=== PATIENT | female | born 1960 | race Caucasian/White ===

== ENCOUNTER → 2016-04-02 | Outpatient (CLI) | payer MEDICAID ==
[2016-04-02 10:01] LABS: HEMATOCRIT 41.1 % (36.0-47.0); HEMOGLOBIN 13.7 g/dL (12.0-15.5); MEAN CORPUSCULAR HEMOGLOBIN 32.9 pg (27.0-33.4); MEAN CORPUSCULAR HGB CONC 33.3 g/dL (32.0-36.0); MEAN CORPUSCULAR VOLUME 99 fl (80-97); RED BLOOD COUNT 4.15 10^6/uL (3.72-5.28); RED CELL DISTRIBUTION WIDTH 12.2 % (11.5-14.0); WHITE BLOOD COUNT 6.8 10^3/uL (4.0-10.5)
[2016-04-02 10:06] LABS: APPEARANCE,URINE SLIGHTLY-CLOUDY; BILIRUBIN,URINE NEGATIVE (NEGATIVE); GLUCOSE, URINE NEGATIVE (NEGATIVE); KETONES,URINE NEGATIVE (NEGATIVE); LEUKOCYTE ESTERASE,URINE NEGATIVE (NEGATIVE); NITRITE,URINE NEGATIVE (NEGATIVE); PROTEIN,URINE NEGATIVE (NEGATIVE); URINE SPECIFIC GRAVITY 1.017; UROBILINOGEN,URINE NEGATIVE mg/dL (<2.0)
[2016-04-02 10:22] LABS: ALANINE AMINOTRANSFERASE 30 U/L (9-52); ALBUMIN 4.2 g/dL (3.5-5.0); ALKALINE PHOSPHATASE 63 U/L (38-126); ANION GAP 10 (5-19); ASPARTATE AMINO TRANSFERASE 28 U/L (14-36); BILIRUBIN,TOTAL 0.6 mg/dL (0.2-1.3); BLOOD UREA NITROGEN 11 mg/dL (7-20); CALCIUM 9.6 mg/dL (8.4-10.2); CARBON DIOXIDE 29 mmol/L (22-30); CHLORIDE 103 mmol/L (98-107); CHOLESTEROL 196.13 mg/dL (0-200); CREATININE RESULT 0.64 mg/dL (0.52-1.25); Direct HDL 60 mg/dL (>40); GLUCOSE 184 mg/dL (75-110); MAGNESIUM 1.8 mg/dL (1.6-2.3); POTASSIUM 4.6 mmol/L (3.6-5.0); SODIUM 142.2 mmol/L (137-145); TOTAL PROTEIN 7.1 g/dL (6.3-8.2); TRIGLYCERIDES 342 mg/dL (<150); URIC ACID 6.7 mg/dL (2.5-7.5)
[2016-04-02 10:33] LABS: DIRECT LDL 84 mg/dL (<100)
[2016-04-02 10:37] LABS: VLDL CHOLESTEROL 68.4 mg/dL (10-31)
[2016-04-03 11:40] LABS: CREATININE URINE 139.2 mg/dL (Not Estab.); MICROALBUMIN URINE 4.4 ug/mL (Not Estab.)
== END ==
LOC: OD 08:44
PROVIDERS: ATTEND Internal Medicine Cardiovascular Disease
DX: E78.00 Pure hypercholesterolemia, unspecified (principal); E11.42 Type 2 diabetes mellitus with diabetic polyneuropathy; Z79.899 Other long term (current) drug therapy; M10.39 Gout due to renal impairment, multiple sites; Z79.01 Long term (current) use of anticoagulants
CPT/HCPCS: 36415; 80048; 80061; 80076; 81001; 82043; 82570; 83036; 83735; 84443; 84550; 85027; 85730

== ENCOUNTER 2016-05-20 16:12 | Emergency (ER) | payer MEDICAID ==
[2016-05-20] MEDS ORDERED: ASPIRIN 81 MG TABLET, CHEWABLE PO ONE (16:16)
[2016-05-20 17:17] LABS: ABSOLUTE BASOPHILS # (AUTO) 0.1 10^3/uL (0.0-0.2); ABSOLUTE EOSINOPHILS # (AUTO) 0.3 10^3/uL (0.0-0.6); ABSOLUTE LYMPHOCYTES (AUTO) 2.1 10^3/uL (0.5-4.7); ABSOLUTE MONOCYTES (AUTO) 0.6 10^3/uL (0.1-1.4); ABSOLUTE NEUT (AUTO) 5.1 10^3/uL (1.7-8.2); BASOPHILS % (AUTO) 0.8 % (0-2); EOSINOPHILS % (AUTO) 3.2 % (0-6); HEMATOCRIT 42.4 % (36.0-47.0); HEMOGLOBIN 14.4 g/dL (12.0-15.5); HGB HCT DIFFERENCE 0.8; LYMPHOCYTES % (AUTO) 25.9 % (13-45); MEAN CORPUSCULAR HEMOGLOBIN 33.2 pg (27.0-33.4); MEAN CORPUSCULAR VOLUME 98 fl (80-97); MONOCYTES % (AUTO) 7.1 % (3-13); RED BLOOD COUNT 4.35 10^6/uL (3.72-5.28); RED CELL DISTRIBUTION WIDTH 12.9 % (11.5-14.0); WHITE BLOOD COUNT 8.1 10^3/uL (4.0-10.5)
[2016-05-20 17:31] LABS: ALANINE AMINOTRANSFERASE 18 U/L (9-52); ALKALINE PHOSPHATASE 63 U/L (38-126); ANION GAP 10 (5-19); ASPARTATE AMINO TRANSFERASE 20 U/L (14-36); BILIRUBIN,TOTAL 0.4 mg/dL (0.2-1.3); BLOOD UREA NITROGEN 17 mg/dL (7-20); CALCIUM 9.9 mg/dL (8.4-10.2); CARBON DIOXIDE 28 mmol/L (22-30); CHLORIDE 102 mmol/L (98-107); CREATINE KINASE 103 U/L (30-135); CREATININE RESULT 0.78 mg/dL (0.52-1.25); GLUCOSE 144 mg/dL (75-110); SODIUM 140.4 mmol/L (137-145); TOTAL PROTEIN 7.2 g/dL (6.3-8.2)
[2016-05-20 17:43] LABS: CREATINE KINASE MB 0.92 ng/mL (<4.55); TROPONIN I < 0.012 ng/mL
--- NOTE | 2016-05-20 18:25 | ER Document Report ---
ED General - General Chief Complaint: Palpitations Stated Complaint: HEART PALPITATIONS Mode of Arrival: Ambulatory Information source: Patient Notes: 55-year-old female history of A. fib on Cardizem presents with palpitations. Patient denies any chest pain shortness breath difficult to breathing. Patient notes she took her Cardizem prior to arrival. Patient is on 2 different medications for her thyroid as well TRAVEL OUTSIDE OF THE [place] IN LAST 30 DAYS: No - HPI Onset: Just prior to arrival Onset/Duration: Sudden Quality of pain: No pain Severity: Mild Pain Level: Denies Associated symptoms: Other Exacerbated by: Denies Relieved by: Denies Similar symptoms previously: Yes Recently seen / treated by doctor: Yes - Related Data Allergies/Adverse Reactions: HARJEET Inhibitors [Harjeet Inhibitors] Allergy (Unknown, Verified 03/22/13 15:39) ACEINHIBITORS [HARJEET Inhibitors] Allergy (Unknown, Verified 02/17/13 18:28) medroxyprogesterone acetate [From Provera] Allergy (Unknown, Verified 02/17/13 18:28) Hives erythromycin base [Erythromycin Base] Adverse Reaction (Mild, Verified 02/17/13 18:28) Itchy Past Medical History - Social History Smoking Status: Never Smoker Cigarette use (# per day): No Chew tobacco use (# tins/day): No Smoking Education Provided: No Family History: Reviewed & Not Pertinent - Past Medical History Cardiac Medical History: Reports: Hx Hypercholesterolemia, Hx Hypertension Denies: Hx Coronary Artery Disease, Hx Heart Attack Pulmonary Medical History: Reports: Hx Asthma, Hx Bronchitis, Hx Pneumonia Denies: Hx Tuberculosis Neurological Medical History: Denies: Hx Cerebrovascular Accident, Hx Seizures Endocrine Medical History: Reports: Hx Diabetes Mellitus Type 1, Hx Diabetes Mellitus Type 2 Musculoskeltal Medical History: Reports Hx Arthritis - LEGS AND BACK Psychiatric Medical History: Reports: Hx Depression Past Surgical History: Reports: Hx Bowel Surgery - MULTIPLE COLONOSCOPY, Hx Section, Hx Cholecystectomy, Hx Orthopedic Surgery - knee surgery, Hx Tonsillectomy - Immunizations Hx Diphtheria, Pertussis, Tetanus Vaccination: Yes Hx Pneumococcal Vaccination: 02/15/13 Review of Systems - Review of Systems Notes: REVIEW OF SYSTEMS: CONSTITUTIONAL : Denies fever, chills, or sweats. Denies recent illness. EENT: Denies eye, ear, throat, or mouth pain or symptoms. Denies nasal or sinus congestion or discharge. Denies throat, tongue, or mouth swelling or difficulty swallowing. CARDIOVASCULAR: Admits to palpitations RESPIRATORY: Denies cough, cold, or chest congestion. Denies shortness of breath, difficulty breathing, or wheezing. GASTROINTESTINAL: Denies abdominal pain or distention. Denies nausea, vomiting , or diarrhea. Denies blood in vomitus, stools, or per rectum. Denies black, tarry stools. Denies constipation. GENITOURINARY: Denies difficulty urinating, painful urination, burning, frequency, blood in urine, or discharge. FEMALE GENITOURINARY: Denies vaginal bleeding, heavy or abnormal periods, irregular periods. Denies vaginal discharge or odor. MUSCULOSKELETAL: Denies back or neck pain or stiffness. Denies joint pain or swelling. SKIN: Denies rash, lesions or sores. HEMATOLOGIC : Denies easy bruising or bleeding. LYMPHATIC: Denies swollen, enlarged glands. NEUROLOGICAL: Denies confusion or altered mental status. Denies passing out or loss of consciousness. Denies dizziness or lightheadedness. Denies headache. Denies weakness or paralysis or loss of use of either side. Denies problems with gait or speech. Denies sensory loss, numbness, or tingling. Denies seizures. PSYCHIATRIC: Denies anxiety or stress. Denies depression, suicidal ideation, or homicidal ideation. ALL OTHER SYSTEMS REVIEWED AND NEGATIVE. Dictation was performed using [employer] voice recognition software PHYSICAL EXAMINATION: GENERAL: Well-appearing, well-nourished and in no acute distress. HEAD: Atraumatic, normocephalic. EYES: Pupils equal round and reactive to light, extraocular movements intact, conjunctiva are normal. ENT: Nares patent, oropharynx clear without exudates. Moist mucous membranes. NECK: Normal range of motion, supple without lymphadenopathy LUNGS: Breath sounds clear to auscultation bilaterally and equal. No wheezes rales or rhonchi. HEART: Regular rate and rhythm, heart rate 105 ABDOMEN: Soft, nontender, nondistended abdomen. No guarding, no rebound. No masses appreciated. Female : deferred Musculoskeletal: Normal range of motion, no pitting or edema. No cyanosis. NEUROLOGICAL: Cranial nerves grossly intact. Normal speech, normal gait. Normal sensory, motor exams PSYCH: Normal mood, normal affect. SKIN: Warm, Dry, normal turgor, no rashes or lesions noted. Physical Exam - Vital signs Vitals: Pulse Ox 94 05/20/16 16:43 Course - Re-evaluation Re-evalutation: 05/20/16 23:12 Patient notes her heart rate was in the 180s prior to arrival and has since resolved. Given the patient is on Cardizem denies any other concerns I believe she is stable for discharge. Lab work noted no significant abnormality Patient is ready for discharge and wishes to have discharge papers After performing a Medical Screening Examination, I estimate there is LOW risk for RUPTURED ESOPHAGUS, PNEUMOTHORAX, PULMONARY EMBOLISM, ACUTE CORONARY SYNDROME, OR THORACIC AORTIC DISSECTION, thus I consider the discharge disposition reasonable. The patient and I have discussed the diagnosis and risks , and we agree with discharging home with close follow-up. We also discussed returning to the Emergency Department immediately if new or worsening symptoms occur. We have discussed the symptoms which are most concerning (e.g., bloody sputum, worsening pain or shortness of breath) that necessitate immediate return. - Vital Signs Vital signs: Temp Pulse Resp BP Pulse Ox 97.3 F 88 14 122/84 97 05/20/16 18:23 05/20/16 18:23 05/20/16 18:23 05/20/16 18:23 05/20/16 18:23 - Laboratory Result Diagrams: 05/20/16 16:58 05/20/16 16:58 Laboratory results interpreted by me: 05/20/16 05/20/16 16:58 16:58 MCV 98 H Glucose 144 H - Diagnostic Test Radiology reviewed: Image reviewed, Reports reviewed - EKG Interpretation by [place] EKG shows normal: Sinus rhythm, [place], Intervals, QRS Complexes Rhythm: A.Fib Discharge - Discharge Clinical Impression: Atrial fibrillation with RVR, Palpitations Condition: Stable Disposition: HOME, SELF-CARE Instructions: Palpitations (Irregular or Rapid Heartrate) ([facility]) Additional Instructions: Follow up with your physician tomorrow for further care or return to the ED IMMEDIATELY if symptoms worsen or new concerns occur Referrals: LIANNE HERNANDEZ MD [Primary Care Provider] - Follow up as needed
[2016-05-20 18:26] VITALS: BP 122/84
--- NOTE | 2016-05-20 22:45 | EKG REPORT ---
SEVERITY:- ABNORMAL ECG - SINUS TACHYCARDIA INFERIOR INFARCT, AGE INDETERMINATE ANTERIOR INFARCT, AGE INDETERMINATE : Confirmed by: Ariella Wu 20-May-2016 22:44:01
== END 2016-05-20 19:30 | disposition home or self-care (01) ==
LOC: ER 16:12
DX: R00.2 Palpitations (principal); I48.91 Unspecified atrial fibrillation; I10 Essential (primary) hypertension; J45.909 Unspecified asthma, uncomplicated; E11.9 Type 2 diabetes mellitus without complications; Z88.8 Allergy status to other drugs, medicaments and biological substances; Z79.899 Other long term (current) drug therapy
CPT/HCPCS: 36415; 71010; 80053; 82550; 82553; 84443; 84484; 85025; 93005; 93010; 99285

== ENCOUNTER → 2016-12-26 | Outpatient (CLI) | payer MEDICAID ==
--- NOTE | 2016-12-26 10:53 | RADIOLOGY REPORT (SQ) ---
EXAM DESCRIPTION: CHEST PA/LATERAL COMPLETED DATE/TIME: 12/26/2016 9:58 am REASON FOR STUDY: BRONCHITIS COMPARISON: 05/20/2016 EXAM PARAMETERS: NUMBER OF VIEWS: two views TECHNIQUE: Digital Frontal and Lateral radiographic views of the chest acquired. RADIATION DOSE: NA LIMITATIONS: none FINDINGS: LUNGS AND PLEURA: No opacities, masses or pneumothorax. No pleural effusion. MEDIASTINUM AND HILAR STRUCTURES: No masses or contour abnormalities. HEART AND VASCULAR STRUCTURES: Heart normal size. No evidence for failure. BONES: No acute findings. HARDWARE: None in the chest. OTHER: No other significant finding. IMPRESSION: NO SIGNIFICANT RADIOGRAPHIC FINDING IN THE CHEST. TECHNICAL DOCUMENTATION: JOB ID: [id number] [employer]- All Rights Reserved
== END ==
LOC: OD 09:42
PROVIDERS: ATTEND Physician Assistant
DX: J40 Bronchitis, not specified as acute or chronic (principal)
CPT/HCPCS: 71020

== ENCOUNTER 2017-01-31 17:28 | Emergency (ER) | payer MEDICAID ==
[2017-01-31 17:35] VITALS: BP 153/76
[2017-01-31] MEDS ORDERED: HYDROCODONE/ACETAMINOPHEN 10-325 MG TABLET PO ONE (19:35)
--- NOTE | 2017-01-31 20:08 | RADIOLOGY REPORT (SQ) ---
EXAM DESCRIPTION: SHOULDER LEFT 2 OR MORE VIEWS COMPLETED DATE/TIME: 01/31/2017 7:59 pm REASON FOR STUDY: lifting 35 bottle of water case and had pop in lef COMPARISON: None. NUMBER OF VIEWS: Three views. TECHNIQUE: Internal rotation, external rotation, and Y view images acquired of the left shoulder. LIMITATIONS: None. FINDINGS: MINERALIZATION: Normal. BONES: No acute fracture or dislocation. No worrisome bone lesions. JOINTS: No dislocation. VISUALIZED LUNGS AND RIBS: No pneumothorax. No rib fracture. SOFT TISSUES: No radiopaque foreign body. OTHER: No other significant finding. IMPRESSION: NEGATIVE STUDY OF THE LEFT SHOULDER. NO RADIOGRAPHIC EVIDENCE OF ACUTE INJURY. TECHNICAL DOCUMENTATION: JOB ID: [id number] [employer]- All Rights Reserved
--- NOTE | 2017-01-31 20:48 | ER Document Report ---
ED Extremity Problem, Upper - General Chief Complaint: Shoulder Pain Stated Complaint: LEFT SHOULDER PAIN Time Seen by Provider: 01/31/17 19:27 Mode of Arrival: Ambulatory Information source: Patient Notes: Patient is a 56-year-old morbidly obese white female comes emergency room complaining of left shoulder pain. Patient states that occurred approximately 2 hours ago she tried to lift a 35 bottle of water and she felt a pop on the left top of the arm and on the side. She has pain along the AC joint space area. Patient has an extended history of medical problems to include insulin- dependent diabetes hypertension etc. Patient has no known previous injury to the shoulder. TRAVEL OUTSIDE OF THE [place] IN LAST 30 DAYS: No - HPI Patient complains to provider of: Injury, Left, Shoulder Onset: This evening Recent injury: Yes Where: Other - Store Quality of pain: Sharp, Throbbing Severity of pain: Moderate Pain Level: 3 Context: Other - Lifting heavy Arm and Shoulder (Left): 1 - 1) AC joint area very tender to palpation Associated symptoms: None Exacerbated by: Movement Relieved by: Rest, Positioning Similar symptoms previously: No Recently seen / treated by doctor: No - Related Data Allergies/Adverse Reactions: HARJEET Inhibitors [Harjeet Inhibitors] Allergy (Unknown, Verified 01/31/17 17:33) ACEINHIBITORS [HARJEET Inhibitors] Allergy (Unknown, Verified 01/31/17 17:33) medroxyprogesterone acetate [From Provera] Allergy (Unknown, Verified 01/31/17 17:33) Hives erythromycin base [Erythromycin Base] Adverse Reaction (Mild, Verified 01/31/17 17:33) Itchy Past Medical History - General Information source: Patient Last Menstrual Period: Menopausal - Social History Smoking Status: Never Smoker Cigarette use (# per day): No Chew tobacco use (# tins/day): No Smoking Education Provided: No Frequency of alcohol use: None Drug Abuse: None 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 Lives with: Family Family History: Reviewed & Not Pertinent - Past Medical History Cardiac Medical History: Reports: Hx Hypercholesterolemia, Hx Hypertension Denies: Hx Coronary Artery Disease, Hx Heart Attack Pulmonary Medical History: Reports: Hx Asthma, Hx Bronchitis, Hx Pneumonia Denies: Hx Tuberculosis Neurological Medical History: Denies: Hx Cerebrovascular Accident, Hx Seizures Endocrine Medical History: Reports: Hx Diabetes Mellitus Type 1, Hx Diabetes Mellitus Type 2 Musculoskeltal Medical History: Reports Hx Arthritis - LEGS AND BACK Psychiatric Medical History: Reports: Hx Depression Past Surgical History: Reports: Hx Bowel Surgery - MULTIPLE COLONOSCOPY, Hx Section, Hx Cholecystectomy, Hx Orthopedic Surgery - knee surgery, Hx Tonsillectomy - Immunizations Hx Diphtheria, Pertussis, Tetanus Vaccination: Yes Hx Pneumococcal Vaccination: 02/15/13 Review of Systems - Review of Systems Constitutional: No symptoms reported EENT: No symptoms reported Cardiovascular: No symptoms reported Respiratory: No symptoms reported Gastrointestinal: No symptoms reported Genitourinary: No symptoms reported Female Genitourinary: No symptoms reported Musculoskeletal: Joint pain, Joint swelling Skin: No symptoms reported Hematologic/Lymphatic: No symptoms reported Neurological/Psychological: No symptoms reported -: Yes All other systems reviewed and negative Physical Exam - Vital signs Vitals: Temp Pulse Resp BP Pulse Ox 97.9 F 87 20 153/76 H 95 01/31/17 17:34 01/31/17 17:34 01/31/17 17:34 01/31/17 17:34 01/31/17 17:34 Interpretation: Hypertensive - General General appearance: Other - Obvious pain and discomfort - Respiratory Respiratory status: No respiratory distress Chest status: Nontender Breath sounds: Normal. No: Decreased air movement, Nonproductive cough, Productive cough, Rales, Rhonchi, Stridor, Wheezing, Other Chest palpation: Normal - Cardiovascular Rhythm: Regular Heart sounds: Normal auscultation Murmur: No - Extremities General upper extremity: Tender General lower extremity: Normal inspection Shoulder: Tender, Limited ROM, Other - Examination of patient's left shoulder shows reproducible tenderness and pain at the AC joint area. Patient has decreased range of motion in all planes. Patient supports the left arm with the right because positioning alleviates the discomfort. Patient has good cap refill in the nailbeds of the fingers of the left hand. 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 - Neurological Neuro grossly intact: Yes Cognition: Normal Orientation: AAOx4 [place] Coma Scale Eye Opening: Spontaneous [place] Coma Scale Verbal: Oriented [place] Coma Scale Motor: Obeys Commands [place] Coma Scale Total: 15 Speech: Normal - Skin Skin Temperature: Warm Skin Moisture: Dry Skin Color: Normal, [place] Course - Vital Signs Vital signs: Temp Pulse Resp BP Pulse Ox 97.9 F 87 20 153/76 H 95 01/31/17 17:34 01/31/17 17:34 01/31/17 17:34 01/31/17 17:34 01/31/17 17:34 - Diagnostic Test Radiology reviewed: Reports reviewed - X-ray of the left shoulder does not show any acute findings. - Transfer of Care Notes: 01/31/17 20:52 Had informed patient that she will most likely need an MRI of the shoulder for further evaluation of the joint space area. At present we had placed her in a sling and she is supported with pillow underneath it and has decreased amount of discomfort. Discharge - Discharge Clinical Impression: ACL sprain Qualifiers: Encounter type: initial encounter Condition: Good Disposition: HOME, SELF-CARE Instructions: Oral Narcotic Medication ([facility]), AC Joint Sprain ([facility]) Additional Instructions: Home and rest. Use of the sling for the next 3-5 days. Ice the shoulder at night and use moist heat during the day. Contact her primary care physician for possible MRI of that left shoulder as soon as possible. Should you have any concerns or problems return to ER for recheck Prescriptions: Methocarbamol [Robaxin 500 mg Tablet] 500 mg PO BID #20 tablet Oxycodone HCl/Acetaminophen [Percocet 5-325 mg Tablet] 1 tab PO Q4H PRN #15 tablet PRN Reason:
== END 2017-01-31 21:04 | disposition home or self-care (01) ==
LOC: ER 17:28
DX: S43.52XA Sprain of left acromioclavicular joint, initial encounter (principal); E66.01 Morbid (severe) obesity due to excess calories; X50.0XXA Overexertion from strenuous movement or load, initial encounter; Y92.512 Supermarket, store or market as the place of occurrence of the external cause; I10 Essential (primary) hypertension; E78.00 Pure hypercholesterolemia, unspecified; E11.9 Type 2 diabetes mellitus without complications; Z79.4 Long term (current) use of insulin; Z88.3 Allergy status to other anti-infective agents
CPT/HCPCS: 99283

== ENCOUNTER → 2017-03-03 | Outpatient (CLI) | payer MEDICAID ==
--- NOTE | 2017-03-03 12:04 | RADIOLOGY REPORT (SQ) ---
EXAM DESCRIPTION: CHEST PA/LATERAL COMPLETED DATE/TIME: 03/03/2017 11:42 am REASON FOR STUDY: WHEEZING COMPARISON: 12/26/2016 EXAM PARAMETERS: NUMBER OF VIEWS: two views TECHNIQUE: Digital Frontal and Lateral radiographic views of the chest acquired. RADIATION DOSE: NA LIMITATIONS: none FINDINGS: LUNGS AND PLEURA: No opacities, masses or pneumothorax. No pleural effusion. MEDIASTINUM AND HILAR STRUCTURES: No masses or contour abnormalities. HEART AND VASCULAR STRUCTURES: Heart normal size. No evidence for failure. BONES: No acute findings. HARDWARE: None in the chest. OTHER: No other significant finding. IMPRESSION: NO SIGNIFICANT RADIOGRAPHIC FINDING IN THE CHEST. TECHNICAL DOCUMENTATION: JOB ID: [id number] [employer]- All Rights Reserved
== END ==
LOC: OD 11:32
PROVIDERS: ATTEND Nurse Practitioner Family
DX: R06.2 Wheezing (principal)
CPT/HCPCS: 71020

== ENCOUNTER 2017-07-08 11:20 | Emergency (ER) | payer MEDICAID ==
[2017-07-08] MEDS ORDERED: OXYCODONE-ACETAMINOPHEN 5-325 MG TABLET PO ONE (12:07)
--- NOTE | 2017-07-08 12:11 | ER Document Report ---
ED Extremity Problem, Lower - General Chief Complaint: Knee Injury Stated Complaint: RIGHT KNEE PAIN Time Seen by Provider: 07/08/17 12:00 Notes: Patient is a 56 year old morbidly obese female complaining of right knee pain. Patient reports that she was walking across the parking lot when she felt a pop and acute pain behind her right kneecap. She says her knee gave out. Hurts to walk. No previous injury to that knee. Patient denies any shortness of breath or chest pain. Patient has not had any recent travel, trauma, surgeries. TRAVEL OUTSIDE OF THE [place] IN LAST 30 DAYS: No - HPI Patient complains to provider of: Pain Location: Knee Occurred: Yesterday Onset/Duration: Sudden Associated symptoms: [place] a pop Exacerbated by: Movement, Walking Relieved by: Nothing - Related Data Allergies/Adverse Reactions: HARJEET Inhibitors [Harjeet Inhibitors] Allergy (Unknown, Verified 07/08/17 12:11) ACEINHIBITORS [HARJEET Inhibitors] Allergy (Unknown, Verified 07/08/17 12:11) medroxyprogesterone acetate [From Provera] Allergy (Unknown, Verified 07/08/17 12:11) Hives erythromycin base [Erythromycin Base] Adverse Reaction (Mild, Verified 07/08/17 12:11) Itchy Past Medical History - General Information source: Patient - Social History Smoking Status: Current Some Day Smoker Frequency of alcohol use: None Drug Abuse: None Lives with: Family Family History: Reviewed & Not Pertinent - Past Medical History Cardiac Medical History: Reports: Hx Hypercholesterolemia, Hx Hypertension Denies: Hx Coronary Artery Disease, Hx Heart Attack Pulmonary Medical History: Reports: Hx Asthma, Hx Bronchitis, Hx Pneumonia Denies: Hx Tuberculosis Neurological Medical History: Denies: Hx Cerebrovascular Accident, Hx Seizures Endocrine Medical History: Reports: Hx Diabetes Mellitus Type 1, Hx Diabetes Mellitus Type 2 Renal/ Medical History: Denies: Hx Peritoneal Dialysis Musculoskeltal Medical History: Reports Hx Arthritis - LEGS AND BACK Psychiatric Medical History: Reports: Hx Depression Past Surgical History: Reports: Hx Bowel Surgery - MULTIPLE COLONOSCOPY, Hx Section, Hx Cholecystectomy, Hx Orthopedic Surgery - knee surgery, Hx Tonsillectomy - Immunizations Hx Diphtheria, Pertussis, Tetanus Vaccination: Yes Hx Pneumococcal Vaccination: 02/15/13 Review of Systems - Review of Systems Constitutional: No symptoms reported EENT: No symptoms reported Cardiovascular: No symptoms reported Respiratory: No symptoms reported Gastrointestinal: No symptoms reported Genitourinary: No symptoms reported Female Genitourinary: No symptoms reported Musculoskeletal: See HPI Skin: No symptoms reported Hematologic/Lymphatic: No symptoms reported Neurological/Psychological: No symptoms reported Physical Exam - Vital signs Vitals: Temp Pulse Resp BP Pulse Ox 97.6 F 94 20 155/89 H 95 07/08/17 11:25 07/08/17 11:25 07/08/17 11:25 07/08/17 11:25 07/08/17 11:25 Interpretation: Normal - General General appearance: Appears well, Alert - HEENT Head: Normocephalic, Atraumatic Eyes: Normal Pupils: PERRL - Respiratory Respiratory status: No respiratory distress Chest status: Nontender Breath sounds: Normal Chest palpation: Normal - Cardiovascular Rhythm: Regular Heart sounds: Normal auscultation Murmur: No - Abdominal Inspection: Normal Distension: No distension Bowel sounds: Normal Tenderness: Nontender Organomegaly: No organomegaly - Back Back: Normal, Nontender - Extremities General upper extremity: Normal inspection, Nontender, Normal color, Normal ROM , Normal temperature Knee: Tender - focal anterior knee pain. + medial compartment tenderness. neg drawer. no effusion, echymsosi, erythema. distal SMC intact, Pain with ROM, Tender joint line. No: Deformity, Drawer's test instability, Ecchymosis, Instability, Joint effusion, Laxity with valgus stress, Laxity with varus stress - Neurological Neuro grossly intact: Yes Cognition: Normal Orientation: AAOx4 [place] Coma Scale Eye Opening: Spontaneous [place] Coma Scale Verbal: Oriented [place] Coma Scale Motor: Obeys Commands [place] Coma Scale Total: 15 Speech: Normal Motor strength normal: LUE, RUE, LLE, RLE Sensory: Normal - Psychological Associated symptoms: Normal affect, Normal mood - Skin Skin Temperature: Warm Skin Moisture: Dry Skin Color: Normal Course - Re-evaluation Re-evalutation: 07/08/17 12:12 After performing a Medical Screening Examination, I estimate there is LOW risk for OPEN FRACTURE, COMPARTMENT SYNDROME, DEEP VENOUS THROMBOSIS, ACUTE TENDON RUPTURE, or NEUROVASCULAR INJURY. xray is unremarkable. thus I consider the discharge disposition reasonable. I have reevaluated this patient multiple times and no significant life threatening changes are noted. The patient and I have discussed the diagnosis and risks, and we agree with discharging home to closely follow-up with their primary doctor or the referral orthopedist with the understanding that symptoms and presentations can change. We also discussed returning to the Emergency Department immediately if new or worsening symptoms occur. We have discussed the symptoms which are most concerning (e.g., changing or worsening pain, numbness, weakness) that necessitate immediate return 07/08/17 12:38 [place] controlled substance database was reviewed. Last narcotic prescription was written by primary care in January 2017 - Vital Signs Vital signs: Temp Pulse Resp BP Pulse Ox 97.6 F 94 20 155/89 H 95 07/08/17 11:25 07/08/17 11:25 07/08/17 11:25 07/08/17 11:25 07/08/17 11:25 Procedures - Immobilization Right knee Immobilizer type: Harjeet wrap Performed by: PCT Post-Proc Neuro Vasc Exam: Normal Alignment checked and good: Yes Discharge - Discharge Clinical Impression: Right knee buckling Right knee injury Qualifiers: Encounter type: initial encounter Qualified Code(s): S89.91XA - Unspecified injury of right lower leg, initial encounter Condition: Stable Disposition: HOME, SELF-CARE Instructions: Harjeet Wrap ([facility]), Ice & Elevation ([facility]), Suspected Internal Knee Injury ([facility]), Oral Narcotic Medication ([facility]), Sprained Knee ([facility]) Additional Instructions: Maddie, your x-ray is negative for any bony injury but I cannot rule out an internal knee injury Keep your knee iced and elevated as much as you can Wear the Harjeet wrap for support and comfort Continue your ibuprofen 800 mg 3 times a day for inflammation I am prescribing a short course of narcotic pain medicine for the severe pain. Please follow-up with your primary care if the pain persists more than 10 days. you may need an orthopedic referral Prescriptions: Oxycodone HCl/Acetaminophen [Percocet 5-325 mg Tablet] 1 - 2 tab PO ASDIR PRN # 15 tablet PRN Reason: Referrals: ANTONIA DENNEY MD [Primary Care Provider] - Follow up as needed MARYANN JOSE MD [ACTIVE STAFF] - Follow up as needed
--- NOTE | 2017-07-08 13:10 | RADIOLOGY REPORT (SQ) ---
EXAM DESCRIPTION: KNEE RIGHT 4 VIEWS COMPLETED DATE/TIME: 07/08/2017 12:37 pm REASON FOR STUDY: felt pop and pain in knee COMPARISON: None. NUMBER OF VIEWS: Four views. TECHNIQUE: AP, lateral, and both oblique radiographic images acquired of the right knee. LIMITATIONS: None. FINDINGS: MINERALIZATION: Normal. BONES: No acute appearing fracture. Chronic appearing changes suprapatellar. JOINT: Arthritic change, particularly subpatellar compartment. No obvious joint fluid. Medial and l ateral compartments are fairly well-maintained. OTHER: No other significant finding. IMPRESSION: Arthritic changes. No acute appearing fractures. TECHNICAL DOCUMENTATION: JOB ID: [id number] [employer]- All Rights Reserved Reading location - IP/workstation name: [email or web address]
[2017-07-08 13:17] VITALS: BP 151/73
== END 2017-07-08 13:22 | disposition home or self-care (01) ==
LOC: ER 11:20
DX: S89.91XA Unspecified injury of right lower leg, initial encounter (principal); M25.561 Pain in right knee; X58.XXXA Exposure to other specified factors, initial encounter; R29.898 Other symptoms and signs involving the musculoskeletal system; E66.01 Morbid (severe) obesity due to excess calories; Z68.44 Body mass index [BMI] 60.0-69.9, adult; I10 Essential (primary) hypertension; J45.909 Unspecified asthma, uncomplicated; E11.9 Type 2 diabetes mellitus without complications; F17.200 Nicotine dependence, unspecified, uncomplicated; Z88.8 Allergy status to other drugs, medicaments and biological substances
CPT/HCPCS: 99283

== ENCOUNTER → 2017-09-04 | Outpatient (CLI) | payer MEDICAID ==
--- NOTE | 2017-09-04 16:20 | RADIOLOGY REPORT (SQ) ---
EXAM DESCRIPTION: MRI RT LOWER JOINT WITHOUT COMPLETED DATE/TIME: 09/04/2017 1:36 pm REASON FOR STUDY: M23.205 DERANGEMENT OF UNSPECIFIED MEDIAL MENISCUS DUE TO OLD TEAR OR INJUR M23.20 5 DERANG OF UNSP MEDIAL MENSC DUE TO OLD TEAR/INJ, UNS COMPARISON: None. TECHNIQUE: Rightknee images acquired and stored on PACS. Multiplanar images include fat sensitive s equences as T1, water sensitive sequences as FST2 or STIR, cartilage sensitive sequences as FSPD, and gradient echo sequences. LIMITATIONS: Motion artifact throughout the study FINDINGS: JOINT AND BURSAE: No effusion. BONE CORTEX AND MARROW: There is marrow edema along the medial edge medial tibial plateau, and along the medial tibial spine without discrete fracture lines identified. ACL: Intact anterior band PCL: Intact. MCL: There is high signal deep to and superficial to the medial collateral ligament without discrete tear LCL: Intact. No periligamentous edema or fluid. MEDIAL MENISCUS: Diffusely degenerated. No paralabral cysts. LATERAL MENISCUS: Diffusely degenerated. No paralabral cysts. MEDIAL COMPARTMENT: Moderate chondromalacia. Subcortical edema along the medial edge medial tibial p lateau without displaced fracture LATERAL COMPARTMENT: Cartilage preserved. No bone bruises or reactive marrow edema. No osteophytes. PATELLA: High-grade lateral patellofemoral compartment chondromalacia. Mild lateral subluxation of p atella with respect the distal femur. Retinacular grossly intact. EXTENSOR MECHANISM: Intact. Quadriceps and patella tendons normal. SOFT TISSUES: Varicose veins in the medial and lateral thigh soft tissues OTHER: No other significant finding. IMPRESSION: Medial and lateral meniscal tears. Edema along medial collateral ligament worrisome for strain TECHNICAL DOCUMENTATION: JOB ID: [id number]- All Rights Reserved Reading location - IP/workstation name: [email or web address]
== END ==
LOC: RAD 10:17
PROVIDERS: ATTEND Orthopaedic Surgery
DX: M23.206 Derangement of unspecified meniscus due to old tear or injury, right knee (principal)

== ENCOUNTER 2017-10-01 05:26 | Day surgery (SDC) | payer MEDICAID ==
[2017-09-23 11:32] LABS: HEMATOCRIT 41.2 % (36.0-47.0); HEMOGLOBIN 14.2 g/dL (12.0-15.5); MEAN CORPUSCULAR HEMOGLOBIN 33.6 pg (27.0-33.4); MEAN CORPUSCULAR HGB CONC 34.5 g/dL (32.0-36.0); MEAN CORPUSCULAR VOLUME 97 fl (80-97); PLATELET COUNT 224 10^3/uL (150-450); RED BLOOD COUNT 4.23 10^6/uL (3.72-5.28); RED CELL DISTRIBUTION WIDTH 13.2 % (11.5-14.0); WHITE BLOOD COUNT 6.7 10^3/uL (4.0-10.5)
[2017-09-23 11:42] LABS: APPEARANCE,URINE SLIGHTLY-CLOUDY; BILIRUBIN,URINE NEGATIVE (NEGATIVE); COLOR,URINE YELLOW; GLUCOSE, URINE NEGATIVE (NEGATIVE); KETONES,URINE NEGATIVE (NEGATIVE); LEUKOCYTE ESTERASE,URINE NEGATIVE (NEGATIVE); NITRITE,URINE NEGATIVE (NEGATIVE); PROTEIN,URINE NEGATIVE (NEGATIVE); URINE SPECIFIC GRAVITY 1.015; UROBILINOGEN,URINE NEGATIVE mg/dL (<2.0)
[2017-09-23 11:54] LABS: ANION GAP 13 (5-19); BLOOD UREA NITROGEN 11 mg/dL (7-20); CARBON DIOXIDE 28 mmol/L (22-30); CHLORIDE 101 mmol/L (98-107); GLUCOSE 231 mg/dL (75-110); POTASSIUM 4.5 mmol/L (3.6-5.0); SODIUM 141.6 mmol/L (137-145)
--- NOTE | 2017-09-23 12:05 | RADIOLOGY REPORT (SQ) ---
EXAM DESCRIPTION: CHEST PA/LATERAL COMPLETED DATE/TIME: 09/23/2017 11:14 am REASON FOR STUDY: PRE-OP COMPARISON: February 2017 EXAM PARAMETERS: NUMBER OF VIEWS: two views TECHNIQUE: Digital Frontal and Lateral radiographic views of the chest acquired. RADIATION DOSE: NA LIMITATIONS: Study is limited somewhat due to the patient's body habitus. FINDINGS: LUNGS AND PLEURA: No opacities, masses or pneumothorax. No pleural effusion. MEDIASTINUM AND HILAR STRUCTURES: No masses or contour abnormalities. HEART AND VASCULAR STRUCTURES: Heart normal size. No evidence for failure. BONES: No acute findings. HARDWARE: None in the chest. OTHER: No other significant finding. IMPRESSION: NO SIGNIFICANT RADIOGRAPHIC FINDING IN THE CHEST. TECHNICAL DOCUMENTATION: JOB ID: [id number] [employer]- All Rights Reserved Reading location - IP/workstation name: [email or web address]
--- NOTE | 2017-09-23 21:45 | EKG REPORT ---
SEVERITY:- ABNORMAL ECG - SINUS RHYTHM FIRST DEGREE AV BLOCK INFERIOR INFARCT, OLD BORDERLINE R WAVE PROGRESSION, ANTERIOR LEADS : Confirmed by: Cherelle Warner MD 23-Sep-2017 21:44:52
[~2017-10-01 05:26] MED LIST: CEFAZOLIN 2 GM/D5W RTU 2 GM/50 ML RTUPB IV PRN; LACTATED RINGERS 1000 ML IV PRN; LIDOCAINE 0.5% INJ-PF (5 MG/ML) 50 ML SDV SUBCUT PRN
[2017-10-01] MEDS ORDERED: FENTANYL CITRATE INJ/PF 250 MCG/5 ML AMPULE ONE (07:07)
[2017-10-01] MEDS ORDERED: LIDOCAINE 2% INJ-PF (20 MG/ML) 10 ML AMPUL ONE (07:07)
[2017-10-01] MEDS ORDERED: MIDAZOLAM 2 MG/2 ML INJ ONE (07:08)
[2017-10-01] MEDS ORDERED: PROPOFOL INJ 200 MG/20 ML VIAL IV ONE (07:08)
[2017-10-01] MEDS ORDERED: DEXAMETHASONE SOD PHOSPHATE INJ 4 MG/1 ML VIAL ONE (07:08)
[2017-10-01] MEDS ORDERED: ACETAMINOPHEN 1,000 MG/100 ML RTUPB IV ONE (07:08)
[2017-10-01] MEDS ORDERED: ONDANSETRON HCL INJ/PF 4 MG/2 ML SDV ONE (07:08)
[2017-10-01] MEDS ORDERED: BUPIVACAINE HCL 0.5 % INJ/PF 30 ML SDV ONE (07:19)
[2017-10-01] MEDS ORDERED: BUPIVACAINE HCL 0.25% /EPINEPHRINE INJ/PF 30 ML SDV ONE (07:59)
[2017-10-01] MEDS ORDERED: MEPERIDINE HCL/PF INJ 25 MG/1 ML DISP.SYRIN IV PRN (08:03)
[2017-10-01] MEDS ORDERED: ONDANSETRON HCL INJ/PF 4 MG/2 ML SDV IV PRN (08:03)
[2017-10-01] MEDS ORDERED: PROMETHAZINE HCL INJ 25 MG/1 ML VIAL IV PRN ×2 (08:03)
[2017-10-01] MEDS ORDERED: OXYCODONE-ACETAMINOPHEN 5-325 MG TABLET PO PRN ×4 (08:03→09:04)
[2017-10-01] MEDS ORDERED: MORPHINE SULFATE 10 MG/ML INJ IV PRN (08:03)
[2017-10-01] MEDS ORDERED: DIPHENHYDRAMINE HCL 50 MG/ML VIAL IV PRN (08:03)
[2017-10-01] MEDS ORDERED: FENTANYL CITRATE INJ/PF 100 MCG/2 ML AMPUL IV PRN ×3 (08:03)
--- NOTE | 2017-10-01 09:01 | Operative Report ---
Operative Report DATE OF SURGERY: 10/01/17 PREOPERATIVE DIAGNOSIS: Right knee mild osteoarthritis and lateral meniscus tear POSTOPERATIVE DIAGNOSIS: Same OPERATION: Right knee arthroscopy with partial lateral meniscectomy and chondroplasty of all 3 compartments SURGEON: VINNY UREÑA ANESTHESIA: GA TISSUE REMOVED OR ALTERED: meniscal shaving COMPLICATIONS: none ESTIMATED BLOOD LOSS: 20mL INTRAOPERATIVE FINDINGS: as above PROCEDURE: Patient was brought to the operating room and successfully induced and intubated in a the supine position. Once the ET tube was secured we attempted was unsuccessful due to the large thigh circumference to apply a thigh tourniquet therefore we just proceeded to prep and drape the right lower extremity are normal sterile surgical fashion. Timeout was done identifying the left knee has a correct site. Quarter percent with epinephrine of Marcaine was injected into the anticipated portal sites. 11 blade was used to establish the anterolateral portal. Scope was introduced and the capsule was distended with sterile saline solution. Under direct visualization the anteromedial portal sites was established first by applying a spinal needle and then established with the 11 blade. Probe was introduced and a diagnostic scope was done. Patient had grade 4 changes of the lateral facet and lateral femoral condyle. Patient also has some grade 3 and 4 change of the trochlear groove as well as grade 2 changes of medial femoral condyle. Turned my attention to the medial compartment where the patient did not have a medial meniscus tear. Turned my attention to the notch where patient had an osteophyte but intact ACL and PCL. Placed the leg in [id number] where the lateral meniscus shows a tear in the anterior horn as well as the posterior horn of the lateral meniscus. This was resected using meniscal biter and shaver. Once I successfully shaved and contoured the meniscus and resecting the tears pictures were taken showing stable remanent. I used a 4.0 mm shaver then to do chondroplasty of the lateral femoral condyle and lateral compartment as well as the patellofemoral compartment and medial compartment. Pictures were taken showing the final chondroplasty. Fluid was removed from the knee and the 2 portal sites were closed with 3-0 nylon. I applied Xeroform, 4 x 4 dressing, a ABD pad followed by soft roll and then overwrapped with an Harjeet bandage. Drapes were removed and the patient was extubated and sent to PACU in stable condition
--- NOTE | 2017-10-01 09:04 | Discharge Summary ---
Discharge Summary (SDC) - Discharge Final Diagnosis: As post right knee arthroscopy with partial lateral meniscectomy and chondroplasty Date of Surgery: 10/01/17 Discharge Date: 10/01/17 Condition: Good Treatment or Instructions: Patient instructed to follow up in 10-14 days. Patient instructed to keep dressing dry clean and intact for 4 days and then allowed to remove. At that point patient can shower and apply Band-Aids as needed. Patient can weight-bear as tolerated and do range of motion exercises as tolerated. Crutches for support and safety. Can wean crutches once stable on his feet. Patient instructed to call the office if patient develops fevers chills redness and drainage from the surgical sites. Prescriptions: Oxycodone HCl/Acetaminophen [Percocet 5-325 mg Tablet] 1 - 2 tab PO ASDIR PRN # 40 tablet PRN Reason: Referrals: ANTONIA DENNEY MD [Primary Care Provider] - Discharge Diet: As Tolerated Respiratory Treatments at Home: Deep Breathing/Coughing Discharge Activity: No Driving - While taking narcotics, No Lifting/Push/Pulling , Slowly Increase Activity Home Care Assistance: None Needed Report the Following to Your Physician Immediately: Shortness of Breath, Vomiting, Increase in Pain, Fever over 101 Degrees, Unusual Bleeding, Redness, Swelling, Warmth, Increased Soreness, Drainage-Yellow, Drainage-Jean Baptiste, Drainage- Green, Drainage-Foul Smelling
[2017-10-01 11:36] VITALS: BP 135/79
[2017-10-01] MEDS ORDERED: KETOROLAC TROMETHAMINE 60 MG/2 ML SDV ONE (15:27)
[2017-10-01] MEDS ORDERED: SUCCINYLCHOLINE CHLORIDE INJ 200 MG/10 ML VIAL ONE (15:27)
[2017-10-01] MEDS ORDERED: GLYCOPYRROLATE 1 MG/5 ML SYRINGE ONE (15:27)
== END 2017-10-01 11:30 | disposition home or self-care (01) ==
LOC: OROUT 05:26
PROVIDERS: ATTEND Orthopaedic Surgery
DX: S83.261A Peripheral tear of lateral meniscus, current injury, right knee, initial encounter (principal); S83.221A Peripheral tear of medial meniscus, current injury, right knee, initial encounter; W19.XXXA Unspecified fall, initial encounter; M17.11 Unilateral primary osteoarthritis, right knee; Z01.818 Encounter for other preprocedural examination; E11.9 Type 2 diabetes mellitus without complications; M25.561 Pain in right knee; J45.909 Unspecified asthma, uncomplicated; I10 Essential (primary) hypertension; M10.9 Gout, unspecified; M19.90 Unspecified osteoarthritis, unspecified site; E06.9 Thyroiditis, unspecified; E66.01 Morbid (severe) obesity due to excess calories; G62.9 Polyneuropathy, unspecified; Z79.899 Other long term (current) drug therapy; Z79.51 Long term (current) use of inhaled steroids; Z79.1 Long term (current) use of non-steroidal anti-inflammatories (NSAID); Z68.43 Body mass index [BMI] 50.0-59.9, adult
CPT/HCPCS: 93005; 36415; 82962; 85027; 80048; 81001; 83036; 71046; 93010; 29881; J2250; J3490 ×4; J1100; J1885; J3010; J0330; J2405; J2704; J0690; J0131; 1400

== ENCOUNTER 2017-11-20 14:21 | Emergency (ER) | payer MEDICAID ==
[2017-11-20] MEDS ORDERED: CEPHALEXIN 500 MG CAPSULE PO ONE (16:53)
[2017-11-20] MEDS ORDERED: IBUPROFEN 800 MG TABLET PO ONE (16:53)
--- NOTE | 2017-11-20 16:53 | ER Document Report ---
ED Extremity Problem, Lower - General Chief Complaint: Foot Pain Stated Complaint: POSSIBLE BITE BITE Time Seen by Provider: 11/20/17 16:18 Mode of Arrival: Ambulatory Information source: Patient Notes: 57-year-old female presented ED for complaint of left foot pain 2 days. She states she has a red swollen foot for the last several days. She states she has a history of gout. But she thinks this is a insect bite that has become inflamed and not she has cellulitis. It is warm to the touch. Patient does have a history of diabetes. Patient is alert and oriented respirations regular and unlabored speaking in full sentences and walks with a limp due to pain in this foot. TRAVEL OUTSIDE OF THE [place] IN LAST 30 DAYS: No - HPI Patient complains to provider of: Pain, Swelling. No: Injury Location: Foot Occurred: Other - 2 days left Onset/Duration: Gradual Quality of pain: Burning Severity: Moderate Pain Level: 2 Recent injury: No Associated symptoms: Painful ambulation Exacerbated by: Hanging down, Movement, Walking Relieved by: Nothing - Related Data Allergies/Adverse Reactions: HARJEET Inhibitors [Harjeet Inhibitors] Allergy (Unknown, Verified 11/20/17 14:26) ACEINHIBITORS [HARJEET Inhibitors] Allergy (Unknown, Verified 11/20/17 14:26) medroxyprogesterone acetate [From Provera] Allergy (Unknown, Verified 11/20/17 14:26) Hives erythromycin base [Erythromycin Base] Adverse Reaction (Mild, Verified 11/20/17 14:26) Itchy Past Medical History - General Information source: Patient - Social History Smoking Status: Never Smoker Chew tobacco use (# tins/day): No Frequency of alcohol use: None Drug Abuse: None Lives with: Family Family History: Reviewed & Not Pertinent Patient has suicidal ideation: No Patient has homicidal ideation: No - Past Medical History Cardiac Medical History: Reports: Hx Atrial Fibrillation, Hx Hypercholesterolemia, Hx Hypertension Pulmonary Medical History: Reports: Hx Asthma, Hx Bronchitis, Hx Pneumonia EENT Medical History: Reports: None Endocrine Medical History: Reports: Hx Diabetes Mellitus Type 2, Hx Hypothyroidism Renal/ Medical History: Reports: None Malignancy Medical History: Reports: None GI Medical History: Reports: Hx Colonoscopy Musculoskeletal Medical History: Reports Hx Arthritis - LEGS AND BACK, Reports Hx Gout, Reports Hx Musculoskeletal Deformity, Reports Hx Musculoskeletal Trauma Skin Medical History: Reports None Psychiatric Medical History: Reports: Hx Depression Traumatic Medical History: Reports: None Infectious Medical History: Reports: None Past Surgical History: Reports: Hx Section, Hx Cholecystectomy, Hx Orthopedic Surgery - knee surgery bilateral knees, Hx Tonsillectomy, Hx Umbilical Hernia - Immunizations Hx Diphtheria, Pertussis, Tetanus Vaccination: Yes - 2014 Hx Pneumococcal Vaccination: 02/15/13 Review of Systems - Review of Systems Constitutional: No symptoms reported EENT: No symptoms reported Cardiovascular: No symptoms reported Respiratory: No symptoms reported Gastrointestinal: No symptoms reported Genitourinary: No symptoms reported Female Genitourinary: No symptoms reported Musculoskeletal: Gout - Patient has a history of gout in the same area but she has also been bit by insects that are mildly inflamed. Patient will be treated with Keflex and instructed to use her anti-inflammatory medications for the pain they will also help her with the gout. Skin: Change in color Hematologic/Lymphatic: No symptoms reported Neurological/Psychological: No symptoms reported -: Yes All other systems reviewed and negative Physical Exam - Vital signs Vitals: Temp Pulse Resp BP Pulse Ox 98.3 F 102 H 18 173/62 H 94 11/20/17 14:33 11/20/17 14:33 11/20/17 14:33 11/20/17 14:33 11/20/17 14:33 Interpretation: Normal - General General appearance: Appears well, Alert - HEENT Head: Normocephalic, Atraumatic Eyes: Normal Pupils: PERRL - Respiratory Respiratory status: No respiratory distress Chest status: Nontender Breath sounds: Normal Chest palpation: Normal - Cardiovascular Rhythm: Regular Heart sounds: Normal auscultation Murmur: No - Abdominal Inspection: Normal Distension: No distension Bowel sounds: Normal Tenderness: Nontender Organomegaly: No organomegaly - Back Back: Normal, Nontender - Extremities General upper extremity: Normal inspection, Nontender, Normal color, Normal ROM , Normal temperature General lower extremity: Normal ROM, Normal temperature, Normal weight bearing. No: Brian's sign Foot: Tender, No evidence of FB, Other - Patient has a red swollen foot that is warm to the touch. She has multiple insect bites between her first and second toe that are mildly inflamed. This is also the area where she normally has gout. - Neurological Neuro grossly intact: Yes Cognition: Normal Orientation: AAOx4 Saul Coma Scale Eye Opening: Spontaneous Ingraham Coma Scale Verbal: Oriented Saul Coma Scale Motor: Obeys Commands Ingraham Coma Scale Total: 15 Speech: Normal Motor strength normal: LUE, RUE, LLE, RLE Sensory: Normal - Psychological Associated symptoms: Normal affect, Normal mood - Skin Skin Temperature: Warm Skin Moisture: Dry Skin Color: Normal Location of irregularity: Extremities - Left foot Character of irregularity: Erythematous Irregularity with: Swelling, Tenderness, Warmth Course - Vital Signs Vital signs: Temp Pulse Resp BP Pulse Ox 97.5 F 85 16 152/93 H 94 11/20/17 17:12 11/20/17 17:12 11/20/17 17:12 11/20/17 17:12 11/20/17 17:12 Discharge - Discharge Clinical Impression: Left foot pain Condition: Stable Disposition: HOME, SELF-CARE Additional Instructions: CELLULITIS: You have an infection of your skin and underlying soft tissues called cellulitis. This is due to bacteria, which can enter through any break in the skin, or even through an irritated hair follicle. Untreated, cellulitis will usually worsen. Antibiotics are required. Usually, warm packs or warm soaks, and elevation of the infected area are recommended. You should start getting better within 24 to 36 hours. Most infections respond quickly to the right medication. Follow-up care is important, however, to check for abscess (boil) formation, unsuspected foreign body, or resistant infection. If you develop fever, chills, or if the area of infection is becoming rapidly more swollen or painful, call the doctor at once. Gout You have been diagnosed as having gout. Gout is a problem caused by an excess of uric acid, a natural chemical found in the body. The cause of this disease is unknown. Gout arthritis occurs when crystals of uric acid form in the joints. The big toe is the most common joint involved, but any joint can become affected. Persons with gout may also form uric acid kidney stones, resulting in flank pain and blood in the urine. Nodules of uric acid may form under the skin. The first step of treatment is to decrease the inflammation in the joint with antiinflammatory medication. Medication to lower the uric acid level in the blood may then be prescribed. This medication should be taken regularly, as any sudden change in dosage may provoke an attack of gout. Some foods, such as red meat, can provoke an attack in some gout sufferers. Call the doctor if new symptoms arise, or if you do not improve. Gout Diet Changing your diet can decrease the uric acid in your blood. High levels of uric acid cause gouty arthritis and uric acid kidney stones. If you have gout , you should avoid meats that are high in purine. Meat products to avoid include liver, kidneys, and brains. In general, poultry is better than red meats. Seafoods to avoid include anchovies, sardines, robles, mackerel, and scallops. In addition to limiting purine-rich foods, people with gout should limit protein intake to 10-15% of total calories. Carbohydrate intake should be around 50% of total daily calories. Limit fat intake to 30% of total daily calories. Cholesterol intake should be less than 300 mg/day. Maintain or achieve a healthy body weight. Weight loss should be gradual. Rapid weight loss can actually increase uric acid levels temporarily. Alcohol, especially beer, should be avoided. Get plenty of fluids. This dilutes urinary uric acid, and helps prevent uric acid kidney stones. Drink eight to twelve cups of water daily. Ibuprofen Ibuprofen is an excellent, safe drug for pain control. In addition, it has potent antiinflammatory effects which are beneficial, especially in the treatment of injuries, arthritis, or tendonitis. It's best to take ibuprofen with food. Persons with ulcer disease or allergy to aspirin should notify their physician of this before taking ibuprofen. Take the medication exactly as prescribed. Don't take additional doses unless instructed to do so by your doctor. If you develop wheezing, shortness of breath, hives, faintness, stomach pain, vomiting, or dark black stools, return for re-evaluation at once. Cephalexin The antibiotic you've been prescribed is a member of the cephalosporin class. This type of antibiotic covers a wide variety of infections, including those of the skin, lungs, and urinary tract. It's useful for staph infections. This antibiotic is slightly similar to the penicillin family. In rare cases , a person who is allergic to penicillin will also be allergic to this medication. If you have had a severe allergic reaction to penicillin, and have not taken this antibiotic since that time, notify your doctor. Antibiotics which cover many germs ("broad spectrum" antibiotics) are more likely to cause diarrhea or "yeast" infections. Women prone to vaginal yeast problems may suffer an attack after taking this antibiotic. In infants, oral thrush (white spots "stuck" on the cheek) or yeast diaper rash may result. See your doctor if these problems occur. Call at once if you develop itching, hives , shortness of breath, or lightheadedness. FOLLOW-UP CARE: If you have been referred to a physician for follow-up care, call the physician s office for an appointment as you were instructed or within the next two days. If you experience worsening or a significant change in your symptoms, notify the physician immediately or return to the Emergency Department at any time for re-evaluation. Prescriptions: Cephalexin Monohydrate [Keflex 500 mg Capsule] 500 mg PO Q6H 5 Days capsule Forms: Elevated Blood Pressure Referrals: ANTONIA DENNEY MD [Primary Care Provider] - Follow up tomorrow
[2017-11-20 17:13] VITALS: BP 152/93
== END 2017-11-20 17:13 | disposition home or self-care (01) ==
LOC: ER 14:21
DX: S90.862A Insect bite (nonvenomous), left foot, initial encounter (principal); M79.672 Pain in left foot; W57.XXXA Bitten or stung by nonvenomous insect and other nonvenomous arthropods, initial encounter; E11.9 Type 2 diabetes mellitus without complications; I10 Essential (primary) hypertension; J45.909 Unspecified asthma, uncomplicated; Z87.39 Personal history of other diseases of the musculoskeletal system and connective tissue; Z88.8 Allergy status to other drugs, medicaments and biological substances
CPT/HCPCS: 99283; J3490

== ENCOUNTER 2017-11-28 11:16 | Emergency (ER) | payer MEDICAID ==
[2017-11-28] MEDS ORDERED: HYDROCODONE/ACETAMINOPHEN 10-325 MG TABLET PO ONE (12:10)
--- NOTE | 2017-11-28 12:13 | ER Document Report ---
ED Medical Screen (RME) - General Chief Complaint: Fall Injury Stated Complaint: FALL/LEFT KNEE/FOOT PAIN Time Seen by Provider: 11/28/17 11:59 Mode of Arrival: Wheelchair Information source: Patient Notes: Patient came in complaining of left knee and left foot pain. She says she has fallen twice and injured her knee. So complained of left foot cellulitis and she has been on Keflex for a week. However she said the cellulitis is getting worse. On the review of systems patient also says she has had chest pain on and off for a few days. She is not having chest pain currently but she says she has had it for a few days. Patient is obese on high blood sugar is 252. I have greeted and performed a rapid initial assessment of this patient. A comprehensive ED assessment and evaluation of the patient, analysis of test results and completion of the medical decision making process will be conducted by additional ED providers. TRAVEL OUTSIDE OF THE [place] IN LAST 30 DAYS: No - Related Data Allergies/Adverse Reactions: HARJEET Inhibitors [Harjeet Inhibitors] Allergy (Unknown, Verified 11/28/17 11:28) ACEINHIBITORS [HARJEET Inhibitors] Allergy (Unknown, Verified 11/28/17 11:28) medroxyprogesterone acetate [From Provera] Allergy (Unknown, Verified 11/28/17 11:28) Hives erythromycin base [Erythromycin Base] Adverse Reaction (Mild, Verified 11/28/17 11:28) Itchy Past Medical History - Social History Chew tobacco use (# tins/day): No Frequency of alcohol use: None Drug Abuse: None - Past Medical History Cardiac Medical History: Reports: Hx Atrial Fibrillation, Hx Hypercholesterolemia, Hx Hypertension Denies: Hx Coronary Artery Disease, Hx Heart Attack Pulmonary Medical History: Reports: Hx Asthma, Hx Bronchitis, Hx Pneumonia Denies: Hx COPD, Hx Tuberculosis Neurological Medical History: Denies: Hx Cerebrovascular Accident, Hx Seizures Endocrine Medical History: Reports: Hx Diabetes Mellitus Type 1, Hx Diabetes Mellitus Type 2, Hx Hypothyroidism Renal/ Medical History: Denies: Hx Peritoneal Dialysis GI Medical History: Reports: Hx Colonoscopy Musculoskeltal Medical History: Reports Hx Arthritis - LEGS AND BACK, Reports Hx Gout, Reports Hx Musculoskeletal Deformity, Reports Hx Musculoskeletal Trauma Psychiatric Medical History: Reports: Hx Depression Past Surgical History: Reports: Hx Abdominal Surgery - umbilical hernia, Hx Bowel Surgery - MULTIPLE COLONOSCOPY, Hx Section, Hx Cholecystectomy, Hx Orthopedic Surgery - knee surgery bilateral knees, Hx Tonsillectomy, Hx Umbilical Hernia - Immunizations Hx Diphtheria, Pertussis, Tetanus Vaccination: Yes - 2015 History of Influenza Vaccine for 12/2016 - 05/2017 Season: No Physical Exam - Vital signs Vitals: Temp Pulse Resp BP Pulse Ox 97.5 F 86 18 137/78 H 95 11/28/17 11:40 11/28/17 11:40 11/28/17 11:40 11/28/17 11:40 11/28/17 11:40 Course - Vital Signs Vital signs: Temp Pulse Resp BP Pulse Ox 97.5 F 86 18 137/78 H 95 11/28/17 11:40 11/28/17 11:40 11/28/17 11:40 11/28/17 11:40 11/28/17 11:40 Doctor's Discharge - Discharge Referrals: ANTONIA DENNEY MD [Primary Care Provider] - Follow up as needed
--- NOTE | 2017-11-28 13:35 | RADIOLOGY REPORT (SQ) ---
EXAM DESCRIPTION: KNEE LEFT 4 VIEW COMPLETED DATE/TIME: 11/28/2017 1:25 pm REASON FOR STUDY: pain, s/p fall fall, injury, pain COMPARISON: 06/21/2015 NUMBER OF VIEWS: Four views. TECHNIQUE: AP, lateral, and both oblique radiographic images acquired of the left knee. LIMITATIONS: None. FINDINGS: MINERALIZATION: Normal. BONES: Chronic lateral femoral condyles weight-bearing surface osteochondral fracture, unchanged from 2016. No Acute fracture. JOINT: Moderate suprapatellar knee joint effusion. Advanced patellofemoral compartment joint space n arrowing and bony spurring. No malalignment. SOFT TISSUES: No soft tissue swelling. No radio-opaque foreign body. OTHER: No other significant finding. IMPRESSION: Joint effusion. No acute fracture TECHNICAL DOCUMENTATION: JOB ID: [id number] [employer]- All Rights Reserved Reading location - IP/workstation name: [email or web address]
--- NOTE | 2017-11-28 13:35 | RADIOLOGY REPORT (SQ) ---
EXAM DESCRIPTION: CHEST SINGLE VIEW COMPLETED DATE/TIME: 11/28/2017 1:25 pm REASON FOR STUDY: chest pain COMPARISON: 09/23/2017 EXAM PARAMETERS: NUMBER OF VIEWS: One view. TECHNIQUE: Single frontal radiographic view of the chest acquired. RADIATION DOSE: NA LIMITATIONS: None. FINDINGS: LUNGS AND PLEURA: No opacities, masses or pneumothorax. No pleural effusion. MEDIASTINUM AND HILAR STRUCTURES: No masses. Contour normal. HEART AND VASCULAR STRUCTURES: Heart normal in size. Normal vasculature. BONES: No acute findings. HARDWARE: None in the chest. OTHER: No other significant finding. IMPRESSION: NO ACUTE RADIOGRAPHIC FINDING IN THE CHEST. TECHNICAL DOCUMENTATION: JOB ID: [id number] [employer]- All Rights Reserved Reading location - IP/workstation name: [email or web address]
--- NOTE | 2017-11-28 13:39 | RADIOLOGY REPORT (SQ) ---
EXAM DESCRIPTION: FOOT LEFT COMPLETE COMPLETED DATE/TIME: 11/28/2017 1:25 pm REASON FOR STUDY: pain all over. The patient fall. COMPARISON: Left foot x-ray 06/05/2011 NUMBER OF VIEWS: Three views. TECHNIQUE: AP, lateral and oblique radiographic images acquired of the left foot. LIMITATIONS: None. FINDINGS: MINERALIZATION: Normal. BONES: No acute fracture or dislocation. Degenerative changes are seen at the hindfoot and midfoot. Bony spurs are seen at the calcaneus. SOFT TISSUES: There is diffuse soft tissue swelling. No radiopaque foreign body. IMPRESSION: Diffuse soft tissue swelling. No radiographic evidence for acute fracture. TECHNICAL DOCUMENTATION: JOB ID: [id number] [employer]- All Rights Reserved Reading location - IP/workstation name: [email or web address]
[2017-11-28 13:45] LABS: ABSOLUTE BASOPHILS # (AUTO) 0.1 10^3/uL (0.0-0.2); ABSOLUTE EOSINOPHILS # (AUTO) 0.3 10^3/uL (0.0-0.6); ABSOLUTE LYMPHOCYTES (AUTO) 1.8 10^3/uL (0.5-4.7); ABSOLUTE MONOCYTES (AUTO) 0.5 10^3/uL (0.1-1.4); ABSOLUTE NEUT (AUTO) 3.9 10^3/uL (1.7-8.2); BASOPHILS % (AUTO) 0.8 % (0-2); EOSINOPHILS % (AUTO) 4.1 % (0-6); HEMATOCRIT 41.2 % (36.0-47.0); HEMOGLOBIN 13.8 g/dL (12.0-15.5); LYMPHOCYTES % (AUTO) 27.8 % (13-45); MEAN CORPUSCULAR HEMOGLOBIN 33.3 pg (27.0-33.4); MEAN CORPUSCULAR HGB CONC 33.6 g/dL (32.0-36.0); MEAN CORPUSCULAR VOLUME 99 fl (80-97); MONOCYTES % (AUTO) 7.8 % (3-13); PLATELET COUNT 228 10^3/uL (150-450); RED BLOOD COUNT 4.15 10^6/uL (3.72-5.28); RED CELL DISTRIBUTION WIDTH 12.7 % (11.5-14.0); SEGMENTED NEUTROPHILS % (AUTO) 59.5 % (42-78); TOTAL CELLS COUNTED % (AUTO) 100 %; WHITE BLOOD COUNT 6.5 10^3/uL (4.0-10.5)
[2017-11-28 14:04] LABS: ALANINE AMINOTRANSFERASE 17 U/L (9-52); ALBUMIN 3.9 g/dL (3.5-5.0); ALKALINE PHOSPHATASE 57 U/L (38-126); ANION GAP 7 (5-19); ASPARTATE AMINO TRANSFERASE 26 U/L (14-36); BILIRUBIN,DIRECT 0.5 mg/dL (0.0-0.4); BILIRUBIN,TOTAL 0.9 mg/dL (0.2-1.3); BLOOD UREA NITROGEN 12 mg/dL (7-20); CALCIUM 9.2 mg/dL (8.4-10.2); CARBON DIOXIDE 29 mmol/L (22-30); CHLORIDE 105 mmol/L (98-107); GLUCOSE 240 mg/dL (75-110); POTASSIUM 4.5 mmol/L (3.6-5.0); SODIUM 140.7 mmol/L (137-145)
[2017-11-28] MEDS ORDERED: HYDROCODONE/ACETAMINOPHEN 5-325 MG (6 TAB/ER DISP) PO PRN (14:57)
--- NOTE | 2017-11-28 15:01 | ER Document Report ---
ED General - General Chief Complaint: Fall Injury Stated Complaint: FALL/LEFT KNEE/FOOT PAIN Time Seen by Provider: 11/28/17 11:59 Mode of Arrival: Wheelchair Notes: Patient presents with left foot, left ankle and left knee pain. Patient reports she fell a few days ago. Patient also states she has cellulitis in her left foot. Patient reports she has tried taking Tylenol with no relief. TRAVEL OUTSIDE OF THE [place] IN LAST 30 DAYS: No - Related Data Allergies/Adverse Reactions: HARJEET Inhibitors [Harjeet Inhibitors] Allergy (Unknown, Verified 11/28/17 11:28) ACEINHIBITORS [HARJEET Inhibitors] Allergy (Unknown, Verified 11/28/17 11:28) medroxyprogesterone acetate [From Provera] Allergy (Unknown, Verified 11/28/17 11:28) Hives erythromycin base [Erythromycin Base] Adverse Reaction (Mild, Verified 11/28/17 11:28) Itchy Past Medical History - General Information source: Patient - Social History Smoking Status: Never Smoker Chew tobacco use (# tins/day): No Frequency of alcohol use: None Drug Abuse: None Family History: Reviewed & Not Pertinent Patient has suicidal ideation: No Patient has homicidal ideation: No - Past Medical History Cardiac Medical History: Reports: Hx Atrial Fibrillation, Hx Hypercholesterolemia, Hx Hypertension Denies: Hx Coronary Artery Disease, Hx Heart Attack Pulmonary Medical History: Reports: Hx Asthma, Hx Bronchitis, Hx Pneumonia Denies: Hx COPD, Hx Tuberculosis Neurological Medical History: Denies: Hx Cerebrovascular Accident, Hx Seizures Endocrine Medical History: Reports: Hx Diabetes Mellitus Type 1, Hx Diabetes Mellitus Type 2, Hx Hypothyroidism Renal/ Medical History: Denies: Hx Peritoneal Dialysis GI Medical History: Reports: Hx Colonoscopy Musculoskeletal Medical History: Reports Hx Arthritis - LEGS AND BACK, Reports Hx Gout, Reports Hx Musculoskeletal Deformity, Reports Hx Musculoskeletal Trauma Psychiatric Medical History: Reports: Hx Depression Past Surgical History: Reports: Hx Abdominal Surgery - umbilical hernia, Hx Bowel Surgery - MULTIPLE COLONOSCOPY, Hx Section, Hx Cholecystectomy, Hx Orthopedic Surgery - knee surgery bilateral knees, Hx Tonsillectomy, Hx Umbilical Hernia - Immunizations Hx Diphtheria, Pertussis, Tetanus Vaccination: Yes - 2014 Hx Pneumococcal Vaccination: 02/15/13 Review of Systems - Review of Systems Cardiovascular: Chest pain Musculoskeletal: See HPI Skin: See HPI -: Yes All other systems reviewed and negative Physical Exam - Vital signs Vitals: Temp Pulse Resp BP Pulse Ox 97.5 F 86 18 137/78 H 95 11/28/17 11:40 11/28/17 11:40 11/28/17 11:40 11/28/17 11:40 11/28/17 11:40 - Notes Notes: PHYSICAL EXAMINATION: GENERAL: Well-appearing, well-nourished and in no acute distress. HEAD: Atraumatic, normocephalic. EYES: Pupils equal round and reactive to light, extraocular movements intact, conjunctiva are normal. ENT: Nares patent, oropharynx clear without exudates. Moist mucous membranes. NECK: Normal range of motion, supple without lymphadenopathy LUNGS: Breath sounds clear to auscultation bilaterally and equal. No wheezes rales or rhonchi. HEART: Regular rate and rhythm without murmurs ABDOMEN: Soft, nontender, nondistended abdomen. No guarding, no rebound. No masses appreciated. Female : deferred Musculoskeletal: Normal range of motion, no pitting or edema. No cyanosis. NEUROLOGICAL: Cranial nerves grossly intact. Normal speech, normal gait. Normal sensory, motor exams. Left foot swelling with mild erythema and ecchymosis, cap refill less than 3 seconds, normal motor and sensation distal to injury. PSYCH: Normal mood, normal affect. SKIN: Warm, Dry, normal turgor, no rashes or lesions noted. Course - Re-evaluation Re-evalutation: X-rays are negative for any acute findings. EKG reveals sinus rhythm, no ST segment changes. Chest x-ray is unremarkable. Patient will continue to take her antibiotics that she has been prescribed for the cellulitis as it appears to be healing well. - Vital Signs Vital signs: Temp Pulse Resp BP Pulse Ox 98.0 F 73 18 145/89 H 96 11/28/17 15:20 11/28/17 15:20 11/28/17 11:40 11/28/17 15:20 11/28/17 15:20 - Laboratory Result Diagrams: 11/28/17 13:35 11/28/17 13:35 Laboratory results interpreted by me: 11/28/17 11/28/17 11/28/17 12:04 13:35 13:35 MCV 99 H Glucose 240 H POC Glucose 252 H Direct Bilirubin 0.5 H Discharge - Discharge Clinical Impression: Knee pain Qualifiers: Chronicity: acute Laterality: unspecified laterality Qualified Code(s): M25.569 - Pain in unspecified knee Condition: Stable Disposition: HOME, SELF-CARE Additional Instructions: SPRAIN: Your injury is a sprain. A sprain results from stretching or tearing of the ligaments, usually from a twisting injury. The ligaments will require time and protection in order to heal properly. Many sprains are quite disabling and should be taken seriously. The usual initial treatment of sprains is cold packs, elevation, and rest of the injured area. Your physician has assessed the seriousness of your ligament injury, and has outlined a treatment plan. Understand that this treatment may change, depending on how you progress. If a re-examination was recommended, it is important that you follow up as instructed. Call the doctor any time if there is severe pain, numbness, or loss of function in the injured area. SPRAINED KNEE: Your sprained knee results from a stretching or tearing of the ligaments which support the joint. This often results from a bending stress -- such as a twisting fall while skiing or a "clip" while playing football. The ligaments will require time and protection to heal adequately. A knee sprain can be quite serious, and should be taken seriously. The usual treatment is splinting of the knee, ice packs, and elevation. You shouldn't walk on the leg if weightbearing is painful. Unless the sprain is obviously a minor one, follow-up exam is very important. The degree of ligament damage often cannot be fully assessed at first due to muscle spasm and pain. Your treatment plan may change based on the physician's findings during your follow-up examination. Call the doctor at once if there is severe swelling, increasing pain, numbness, or other alarming symptoms. USE OF CRUTCHES: The doctor has recommended that you not bear weight at this time. You will need to use crutches. Adjust the crutches so the tops come to about two inches under the armpit while you are standing upright. Use your hands -- not your armpits -- to support your weight. To get into a chair, support yourself with one crutch on the injured side. Hold the chair with the other hand, then lower yourself while putting all your weight on the good leg. Going up stairs is `good leg up, step up, then bring up crutches and bad leg.' Down stairs is `bad leg and crutches down, then bring good leg down.' If you develop numbness or swelling in an arm or hand, you are using the crutches incorrectly. Return if you are having any problems with the crutches. ICE & ELEVATION: Apply ice packs frequently against the painful area. Many different schedules are recommended, such as "20 minutes on, 20 minutes off" or "one hour ice, two hours rest." If you need to work, you may need to go longer between ice treatments. You should plan to have the area ice packed AT LEAST one- fourth of the time. The ice should be applied over the wrap, tape, or splint, or over a layer of cloth -- not directly against the skin. Some ice bags have a built-in cloth and can be put directly on the skin. Your injured part should be elevated as much as possible over the next 48 hours. Try to keep the injury above the level of the heart. Avoid use of the injured area. Elevation and rest will decrease the swelling. USE OF [id number] IBUPROFEN: Ibuprofen (Advil, Nuprin, Medipren, Motrin IB) is a medication for fever and pain control. In addition, it has anti- inflammatory effects which may be beneficial, especially in the treatment of injuries. It's best to take ibuprofen with food. Persons with ulcer disease or allergy to aspirin should notify their physician of this before taking ibuprofen. Ibuprofen can be given every four to six hours, for a total of four doses daily. Please take ibuprofen 600 mg every 6 hours for pain. ORAL NARCOTIC MEDICATION: You have been given a prescription for pain control. This medication is a narcotic. It's best taken with food, as nausea can result if taken on an empty stomach. Don't operate machinery or drive within six hours of taking this medication. Do not combine this medicine with alcohol, or with any medication which can cause sedation (such as cold tablets or sleeping pills) unless you get permission from the physician. Narcotics tend to cause constipation. If possible, drink plenty of fluids and eat a diet high in fiber and fruits. Please be aware that prescription narcotics also have the potential for abuse. People become addicted to these medications because of the general sense of wellbeing that they induce. This feeling along with a significant reduction in tension, anxiety, and aggression provides a stimulating seductive quality to these drugs. Once your pain is under control, we encourage you to discard your unused narcotics. FOLLOW-UP CARE: If you have been referred to a physician for follow-up care, call the physician s office for an appointment as you were instructed or within the next two days. If you experience worsening or a significant change in your symptoms, notify the physician immediately or return to the Emergency Department at any time for re-evaluation. Referrals: ANTONIA DENNEY MD [Primary Care Provider] - Follow up as needed MARYANN JOSE MD [ACTIVE STAFF] - Follow up as needed
[2017-11-28 15:45] VITALS: BP 145/89
--- NOTE | 2017-11-28 21:20 | EKG REPORT ---
SEVERITY:- ABNORMAL ECG - SINUS RHYTHM LAD, CONSIDER LAFB OR INFERIOR INFARCT PROBABLE LEFT VENTRICULAR HYPERTROPHY : Confirmed by: Ariella Wu 28-Nov-2017 21:19:30
== END 2017-11-28 15:45 | disposition home or self-care (01) ==
LOC: ER 11:16
DX: M25.561 Pain in right knee (principal); M25.562 Pain in left knee; M79.672 Pain in left foot; I10 Essential (primary) hypertension; W19.XXXA Unspecified fall, initial encounter; J45.909 Unspecified asthma, uncomplicated
CPT/HCPCS: 36415; 71045; 80053; 82962; 84484; 85025; 93005; 93010; 99284

== ENCOUNTER → 2018-03-12 | Outpatient (CLI) | payer MEDICAID ==
--- NOTE | 2018-03-12 11:27 | RADIOLOGY REPORT (SQ) ---
EXAM DESCRIPTION: U/S THYROID/SFT TISS HD NECK COMPLETED DATE/TIME: 03/12/2018 10:18 am REASON FOR STUDY: NECK MASS R22.1 LOCALIZED SWELLING, MASS AND LUMP, NECK COMPARISON: None. TECHNIQUE: Dynamic and static grayscale images acquired of the localized site of clinical concern an d recorded on PACS. Additional selected color Doppler and spectral images recorded. SITE OF CONCERN: Left submandibular. LIMITATIONS: None. FINDINGS: In the area of interest, there is a 1.5 x 1.6 x 0.7 cm submandibular lymph node. No suspi cious mass. Small thyroid without evidence of thyroid nodule. IMPRESSION: Left submandibular lymph node. TECHNICAL DOCUMENTATION: JOB ID: [id number] [employer]- All Rights Reserved Reading location - IP/workstation name: [email or web address]
== END ==
LOC: RAD 09:47
PROVIDERS: ATTEND Family Medicine
DX: R22.1 Localized swelling, mass and lump, neck (principal)
CPT/HCPCS: 76536

== ENCOUNTER 2018-11-27 15:54 | Emergency (ER) | payer MEDICAID ==
--- NOTE | 2018-11-27 16:54 | ER Document Report ---
ED Medical Screen (RME) - General Chief Complaint: Chest Pain Stated Complaint: CHEST PAIN Time Seen by Provider: 11/27/18 16:41 Primary Care Provider: ANTONIA DENNEY MD [Primary Care Provider] - Follow up as needed Notes: Patient is a 58-year-old female with a history of A. fib, diabetes, hypertension and hypothyroidism who presents emergency department with a chief complaint of heart palpitations. Patient states around 330 this afternoon she was walking out of [facility] when she developed a rapid heart rate and a burning sensation in her chest. Patient reports she also did have a shortness of breath. 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 Patient reports she did not take her diltiazem today. Patient states this episode of chest palpitations lasted for about 30 minutes. Patient states that this time she does not have any burning in her chest or a feeling of rapid heartbeat. Patient states she is still having some shortness of breath. TRAVEL OUTSIDE OF THE [place] IN LAST 30 DAYS: No - Related Data Allergies/Adverse Reactions: HARJEET Inhibitors [Harjeet Inhibitors] Allergy (Unknown, Verified 11/28/17 11:28) ACEINHIBITORS [HARJEET Inhibitors] Allergy (Unknown, Verified 11/28/17 11:28) medroxyprogesterone acetate [From Provera] Allergy (Unknown, Verified 11/28/17 11:28) Hives erythromycin base [Erythromycin Base] Adverse Reaction (Mild, Verified 11/28/17 11:28) Itchy Past Medical History - Past Medical History Cardiac Medical History: Reports: Hx Atrial Fibrillation, Hx Hypercholesterolemia, Hx Hypertension Denies: Hx Coronary Artery Disease, Hx Heart Attack Pulmonary Medical History: Reports: Hx Asthma, Hx Bronchitis, Hx Pneumonia Denies: Hx COPD, Hx Tuberculosis Neurological Medical History: Denies: Hx Cerebrovascular Accident, Hx Seizures Endocrine Medical History: Reports: Hx Diabetes Mellitus Type 1, Hx Diabetes Mellitus Type 2, Hx Hypothyroidism Renal/ Medical History: Denies: Hx Peritoneal Dialysis GI Medical History: Reports: Hx Colonoscopy Musculoskeltal Medical History: Reports Hx Arthritis - LEGS AND BACK, Reports Hx Gout, Reports Hx Musculoskeletal Deformity, Reports Hx Musculoskeletal Trauma Psychiatric Medical History: Reports: Hx Depression Past Surgical History: Reports: Hx Abdominal Surgery - umbilical hernia, Hx Bowel Surgery - MULTIPLE COLONOSCOPY, Hx Section, Hx Cholecystectomy, Hx Orthopedic Surgery - knee surgery bilateral knees, Hx Tonsillectomy, Hx Umbilical Hernia - Immunizations Hx Diphtheria, Pertussis, Tetanus Vaccination: Yes - 2014 History of Influenza Vaccine for 12/2016 - 05/2017 Season: No Physical Exam - Vital signs Vitals: Temp Pulse Resp BP Pulse Ox 97.2 F 95 16 145/86 H 93 11/27/18 16:06 11/27/18 16:06 11/27/18 16:06 11/27/18 16:06 11/27/18 16:06 - Respiratory Respiratory status: No respiratory distress Chest status: Nontender Breath sounds: Normal Chest palpation: Normal - Cardiovascular Rhythm: Regular Heart sounds: Normal auscultation, S1 appreciated, S2 appreciated Course - Re-evaluation Re-evalutation: 11/27/18 16:54 Patient is EKG was in a sinus rhythm. Patient is currently asymptomatic and not having any palpitations or chest pain. I have greeted and performed a rapid initial assessment of this patient. A comprehensive ED assessment and evaluation of the patient, analysis of test results and completion of the medical decision making process will be conducted by additional ED providers. - Vital Signs Vital signs: Temp Pulse Resp BP Pulse Ox 97.2 F 95 16 145/86 H 93 11/27/18 16:06 11/27/18 16:06 11/27/18 16:06 11/27/18 16:06 11/27/18 16:06 Doctor's Discharge - Discharge Referrals: ANTONIA DENNEY MD [Primary Care Provider] - Follow up as needed
[2018-11-27 18:13] LABS: ABSOLUTE BASOPHILS # (AUTO) 0.1 10^3/uL (0.0-0.2); ABSOLUTE EOSINOPHILS # (AUTO) 0.2 10^3/uL (0.0-0.6); ABSOLUTE LYMPHOCYTES (AUTO) 2.1 10^3/uL (0.5-4.7); ABSOLUTE MONOCYTES (AUTO) 0.6 10^3/uL (0.1-1.4); ABSOLUTE NEUT (AUTO) 5.2 10^3/uL (1.7-8.2); BASOPHILS % (AUTO) 1.1 % (0-2); EOSINOPHILS % (AUTO) 2.3 % (0-6); HEMATOCRIT 43.7 % (36.0-47.0); HEMOGLOBIN 14.8 g/dL (12.0-15.5); LYMPHOCYTES % (AUTO) 25.8 % (13-45); MEAN CORPUSCULAR HGB CONC 33.9 g/dL (32.0-36.0); MEAN CORPUSCULAR VOLUME 98 fl (80-97); MONOCYTES % (AUTO) 6.9 % (3-13); PLATELET COUNT 232 10^3/uL (150-450); RED BLOOD COUNT 4.47 10^6/uL (3.72-5.28); RED CELL DISTRIBUTION WIDTH 12.9 % (11.5-14.0); SEGMENTED NEUTROPHILS % (AUTO) 63.9 % (42-78); TOTAL CELLS COUNTED % (AUTO) 100 %; WHITE BLOOD COUNT 8.1 10^3/uL (4.0-10.5)
[2018-11-27 18:26] LABS: ALBUMIN 4.2 g/dL (3.5-5.0); ALKALINE PHOSPHATASE 66 U/L (38-126); ANION GAP 12 (5-19); ASPARTATE AMINO TRANSFERASE 29 U/L (14-36); BILIRUBIN,DIRECT 0.2 mg/dL (0.0-0.4); BILIRUBIN,TOTAL 0.5 mg/dL (0.2-1.3); BLOOD UREA NITROGEN 10 mg/dL (7-20); CALCIUM 9.4 mg/dL (8.4-10.2); CARBON DIOXIDE 24 mmol/L (22-30); CHLORIDE 101 mmol/L (98-107); GLUCOSE 271 mg/dL (75-110); POTASSIUM 4.6 mmol/L (3.6-5.0); TOTAL PROTEIN 7.3 g/dL (6.3-8.2)
--- NOTE | 2018-11-27 19:24 | RADIOLOGY REPORT (SQ) ---
EXAM DESCRIPTION: CHEST 2 VIEWS COMPLETED DATE/TIME: 11/27/2018 7:00 pm REASON FOR STUDY: CHEST PALPITATIONS COMPARISON: 02/17/2013 TECHNIQUE: Frontal and lateral radiographic views of the chest acquired. NUMBER OF VIEWS: Two view. LIMITATIONS: None. FINDINGS: LUNGS AND PLEURA: No pneumothorax. No consolidation or pleural effusion. MEDIASTINUM AND HILAR STRUCTURES: Stable. HEART AND VASCULAR STRUCTURES: Stable. BONES: No acute findings. HARDWARE: None in the chest. OTHER: No other significant finding. IMPRESSION: NO ACUTE FINDINGS. TECHNICAL DOCUMENTATION: JOB ID: [id number] [place]-72 2010 [employer]- All Rights Reserved Reading location - IP/workstation name: [email or web address]
--- NOTE | 2018-11-27 19:43 | EKG REPORT ---
SEVERITY:- ABNORMAL ECG - SINUS RHYTHM ABNRM R PROG, CONSIDER ASMI OR LEAD PLACEMENT LEFT ANTERIOR FASCICULAR BLOCK : Confirmed by: Cherelle Warner MD 27-Nov-2018 19:42:42
--- NOTE | 2018-11-27 20:35 | ER Document Report ---
ED Cardiac - General Chief Complaint: Chest Pain Stated Complaint: CHEST PAIN Time Seen by Provider: 11/27/18 16:41 Primary Care Provider: ANTONIA DENNEY MD [Primary Care Provider] - Follow up as needed Mode of Arrival: Ambulatory Information source: Patient Notes: Patient is a 58-year-old female with a history of A. fib, diabetes, hypertension and hypothyroidism who presents emergency department with a chief complaint of heart palpitations. Patient states around 330 this afternoon she was walking out of [facility] when she developed a rapid heart rate and a burning sensation in her chest. Patient reports she also did have a shortness of breath. 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 Patient reports she did not take her diltiazem today. Patient states this episode of chest palpitations lasted for about 30 minutes. Patient states that this time she does not have any burning in her chest or a feeling of rapid heartbeat. Patient states she is still having some shortness of breath. History of Present Illness [ Chief Complaint: Palpitation History obtained from patient as per initial history, she was in [facility] when she started having the palpitation. She denies any chest pain. Denies any left arm numbness tingling sensation nausea vomiting or diaphoresis. Palpitations subsided by the time she came to the ED. Symptoms began: Today Onset: Gradual Timing: Constant, now gone Quality: "pain" Intensity: Moderate Location: Substernal Radiation: None Migration: None Aggravating factors: None Relieving factors: None Major PE risk factors: None Major aortic dissection risk factors: None Review of Systems: All other systems negative as reviewed. CONSTITUTIONAL No fever, No chills, No sweats. EYES No eye pain. ENT No URI symptoms, No sore throat, No ear pain. CARDIOVASCULAR + chest pain, No palpitations, No edema. RESPIRATORY No Cough, No SOB, No wheezing. GASTROINTESTINAL No abdominal pain, No nausea, No diarrhea, No vomiting, No GI Bleeding. GENITOURINARY No UTI symptoms. MUSCULOSKELETAL No back pain, No calf swelling, No calf pain. SKIN No Rash. NEUROLOGIC No Headache Physical Exam CONSTITUTIONAL Vital signs reviewed, Patient appears comfortable, Alert and oriented X 3, stature. Morbid obesity HEAD Atraumatic, Normocephalic. EYES Eyes are normal to inspection, No discharge from eyes, Extraocular muscles intact, Sclera are normal, Conjunctiva are normal. ENT Ears normal to inspection, Nose examination normal, Posterior pharynx normal, Mouth normal to inspection. NECK Normal ROM, No jugular venous distention, No meningeal signs, no carotid bruit. RESPIRATORY CHEST Chest is nontender, Breath sounds normal, No respiratory distress. CARDIOVASCULAR RRR, No murmurs, Normal S1 S2, No rub, No gallop. ABDOMEN Abdomen is nontender, No pulsatile masses, No other masses, Bowel sounds normal, No distension, No peritoneal signs, No hernias. BACK There is no CVA Tenderness, There is no tenderness to palpation, Normal inspection. UPPER EXTREMITY Inspection normal, No cyanosis, No clubbing, No edema, 2+ radial pulses. LOWER EXTREMITY Inspection normal, No cyanosis, No clubbing, No edema, No calf tenderness, 2+ femoral pulses. NEURO No focal motor deficits, No focal sensory deficits, Speech normal. SKIN Skin is warm, Skin is dry, Skin is normal color. LYMPHATIC No adenopathy in neck. PSYCHIATRIC Normal affect. TRAVEL OUTSIDE OF THE [place] IN LAST 30 DAYS: No - HPI Notes: Dictated - Related Data Allergies/Adverse Reactions: HARJEET Inhibitors [Harjeet Inhibitors] Allergy (Unknown, Verified 11/28/17 11:28) ACEINHIBITORS [HARJEET Inhibitors] Allergy (Unknown, Verified 11/28/17 11:28) medroxyprogesterone acetate [From Provera] Allergy (Unknown, Verified 11/28/17 11:28) Hives erythromycin base [Erythromycin Base] Adverse Reaction (Mild, Verified 11/28/17 11:28) Itchy Past Medical History - Social History Smoking Status: Never Smoker Lives with: Family Family History: Reviewed & Not Pertinent Patient has suicidal ideation: No Patient has homicidal ideation: No - Past Medical History Cardiac Medical History: Reports: Hx Atrial Fibrillation, Hx Hypercholesterolemia, Hx Hypertension Denies: Hx Coronary Artery Disease, Hx Heart Attack Pulmonary Medical History: Reports: Hx Asthma, Hx Bronchitis, Hx Pneumonia Denies: Hx COPD, Hx Tuberculosis Neurological Medical History: Denies: Hx Cerebrovascular Accident, Hx Seizures Endocrine Medical History: Reports: Hx Diabetes Mellitus Type 1, Hx Diabetes Mellitus Type 2, Hx Hypothyroidism Renal/ Medical History: Denies: Hx Peritoneal Dialysis GI Medical History: Reports: Hx Colonoscopy Musculoskeletal Medical History: Reports Hx Arthritis - LEGS AND BACK, Reports Hx Gout, Reports Hx Musculoskeletal Deformity, Reports Hx Musculoskeletal Trauma Psychiatric Medical History: Reports: Hx Depression Past Surgical History: Reports: Hx Abdominal Surgery - umbilical hernia, Hx B owel Surgery - MULTIPLE COLONOSCOPY, Hx Section, Hx Cholecystectomy, Hx Orthopedic Surgery - knee surgery bilateral knees, Hx Tonsillectomy, Hx Umbilical Hernia - Immunizations Hx Diphtheria, Pertussis, Tetanus Vaccination: Yes - 2014 Hx Pneumococcal Vaccination: 02/15/13 Review of Systems - Review of Systems Notes: Dictated Physical Exam - Vital signs Vitals: Temp Pulse Resp BP Pulse Ox 97.2 F 95 16 145/86 H 93 11/27/18 16:06 11/27/18 16:06 11/27/18 16:06 11/27/18 16:06 11/27/18 16:06 - Notes Notes: Dictated Course - Vital Signs Vital signs: Temp Pulse Resp BP Pulse Ox 98.4 F 74 17 156/87 H 98 11/27/18 20:26 11/27/18 20:26 11/27/18 20:26 11/27/18 20:26 11/27/18 20:26 - Laboratory Result Diagrams: 11/27/18 17:26 11/27/18 17:26 Laboratory results interpreted by me: 11/27/18 11/27/18 17:26 17:26 MCV 98 H Sodium 136.7 L Glucose 271 H - Diagnostic Test Radiology reviewed: Reports reviewed - Chest x-ray reported by radiologist as no acute finding. - EKG Interpretation by Mi EKG shows normal: Sinus rhythm - At the rate of 84 bpm left axis, poor R waves in anterior leads, no acute ST elevation ST depression T wave inversion noted. This was compared to electrocardiogram done in November 2017 no changes noted. Discharge - Discharge Clinical Impression: Palpitation Condition: Fair Disposition: HOME, SELF-CARE Additional Instructions: Palpitation, take Cardizem twice a day Referrals: ANTONIA DENNEY MD [Primary Care Provider] - Follow up as needed
[2018-11-27 22:16] VITALS: BP 178/96
== END 2018-11-27 22:16 | disposition home or self-care (01) ==
LOC: ER 15:54
DX: R00.2 Palpitations (principal); I48.91 Unspecified atrial fibrillation; T46.1X6A Underdosing of calcium-channel blockers, initial encounter; Z91.128 Patient's intentional underdosing of medication regimen for other reason; Z91.14 Patient's other noncompliance with medication regimen; R07.9 Chest pain, unspecified; J45.909 Unspecified asthma, uncomplicated; R06.02 Shortness of breath; E11.9 Type 2 diabetes mellitus without complications; I10 Essential (primary) hypertension; E66.01 Morbid (severe) obesity due to excess calories; Z88.8 Allergy status to other drugs, medicaments and biological substances; Z87.01 Personal history of pneumonia (recurrent)
CPT/HCPCS: 36415; 71046; 80053; 84484; 85025; 93005; 93010; 99285

== ENCOUNTER 2019-09-20 18:40 | Emergency (ER) | payer MEDICAID ==
[2019-09-20 18:47] VITALS: BP 188/97
[2019-09-20] MEDS ORDERED: LIDOCAINE 2% VISCOUS SOLN 15 ML UDCUP PO ONE (19:04)
[2019-09-20] MEDS ORDERED: PENICILLIN V POTASSIUM 500 MG TABLET PO ONE (19:04)
--- NOTE | 2019-09-20 19:09 | ER Document Report ---
ED ENT - General Chief Complaint: Ear Pain Stated Complaint: EAR PAIN Time Seen by Provider: 09/20/19 18:57 Primary Care Provider: ANTONIA DENNEY MD [Primary Care Provider] - Follow up as needed Mode of Arrival: Ambulatory Information source: Patient Notes: 58-year-old female presented to ED for complaint of right ear pain off and on for a week worse today. She is alert oriented respirations regular nonlabored speaking in full sentences. She does have a cavity tooth lower right. There is no otitis media or otitis externa to the right ear. Will treat the dental infection on the lower right jaw. Patient does have a dental appointment tomorrow. TRAVEL OUTSIDE OF THE [place] IN LAST 30 DAYS: No - HPI Patient complains to provider of: Dental problem, Ear problem Onset: Last week Onset/Duration: Gradual, Worse Quality of pain: Sharp Severity: Severe Pain Level: 5 Location of pain: Ears, Tooth Associated symptoms: Dental pain, Dental caries, Ear pain Similar symptoms previously: Yes Recently seen / treated by doctor: No - Related Data Allergies/Adverse Reactions: HARJEET Inhibitors [Harjeet Inhibitors] Allergy (Unknown, Verified 09/20/19 18:57) ACEINHIBITORS [HARJEET Inhibitors] Allergy (Unknown, Verified 09/20/19 18:57) medroxyprogesterone acetate [From Provera] Allergy (Unknown, Verified 09/20/19 18:57) Hives erythromycin base [Erythromycin Base] Adverse Reaction (Mild, Verified 09/20/19 18:57) Itchy Past Medical History - General Information source: Patient - Social History Smoking Status: Never Smoker Frequency of alcohol use: None Drug Abuse: None Lives with: Family Family History: Reviewed & Not Pertinent Patient has suicidal ideation: No Patient has homicidal ideation: No - Past Medical History Cardiac Medical History: Reports: Hx Atrial Fibrillation, Hx Hypercholesterolemia, Hx Hypertension Pulmonary Medical History: Reports: Hx Asthma, Hx Bronchitis, Hx Pneumonia EENT Medical History: Reports: None Neurological Medical History: Reports: None Endocrine Medical History: Reports: Hx Diabetes Mellitus Type 2, Hx Hypothyroidism Renal/ Medical History: Reports: None Malignancy Medical History: Reports: None GI Medical History: Reports: Hx Colonoscopy Musculoskeletal Medical History: Reports Hx Arthritis - LEGS AND BACK, Reports Hx Gout, Reports Hx Musculoskeletal Deformity, Reports Hx Musculoskeletal Trauma Skin Medical History: Reports None Psychiatric Medical History: Reports: Hx Depression Traumatic Medical History: Reports: None Infectious Medical History: Reports: None Past Surgical History: Reports: Hx Abdominal Surgery - umbilical hernia, Hx Bowel Surgery - MULTIPLE COLONOSCOPY, Hx Section, Hx Cholecystectomy, Hx Orthopedic Surgery - knee surgery bilateral knees, Hx Tonsillectomy, Hx Umbilical Hernia - Immunizations Hx Diphtheria, Pertussis, Tetanus Vaccination: Yes - 2014 Hx Pneumococcal Vaccination: 02/15/13 Review of Systems - Review of Systems Constitutional: No symptoms reported EENT: Ear pain, Mouth pain, Dental problem Cardiovascular: No symptoms reported Respiratory: No symptoms reported Gastrointestinal: No symptoms reported Genitourinary: No symptoms reported Female Genitourinary: No symptoms reported Musculoskeletal: No symptoms reported Skin: No symptoms reported Hematologic/Lymphatic: No symptoms reported Neurological/Psychological: No symptoms reported -: Yes All other systems reviewed and negative Physical Exam - Vital signs Vitals: Temp Pulse Resp BP Pulse Ox 99.1 F 77 22 H 188/97 H 96 09/20/19 18:44 09/20/19 18:44 09/20/19 18:44 09/20/19 18:44 09/20/19 18:44 Interpretation: Normal - General General appearance: Appears well, Alert - HEENT Head: Normocephalic, Atraumatic Eyes: Normal Pupils: PERRL Ears: Normal External canal: Normal Tympanic membrane: Normal Sinus: Normal Nasal: Normal Mouth/Lips: Caries - Lower right jaw pain and right ear pain Pharynx: Normal Neck: Normal - Respiratory Respiratory status: No respiratory distress Chest status: Nontender Breath sounds: Normal Chest palpation: Normal - Cardiovascular Rhythm: Regular Heart sounds: Normal auscultation Murmur: No - Abdominal Inspection: Normal Distension: No distension Bowel sounds: Normal Tenderness: Nontender Organomegaly: No organomegaly - Back Back: Normal, Nontender - Extremities General upper extremity: Normal inspection, Nontender, Normal color, Normal ROM, Normal temperature General lower extremity: Normal inspection, Nontender, Normal color, Normal ROM, Normal temperature, Normal weight bearing. No: Brian's sign - Neurological Neuro grossly intact: Yes Cognition: Normal Orientation: AAOx4 Saul Coma Scale Eye Opening: Spontaneous [place] Coma Scale Verbal: Oriented Saul Coma Scale Motor: Obeys Commands [place] Coma Scale Total: 15 Speech: Normal Motor strength normal: LUE, RUE, LLE, RLE Sensory: Normal - Psychological Associated symptoms: Normal affect, Normal mood - Skin Skin Temperature: Warm Skin Moisture: Dry Skin Color: Normal Course - Re-evaluation Re-evalutation: 09/20/19 19:08 Presentation is most consistent with likely an infected tooth. Airway is patent. Vitals within normal limits. Patient is able swallow without any difficulty. There is no significant facial swelling. No evidence of Jeremy angina, apical abscess, or airway obstruction. Patient will be started on antibiotics. I've instructed to follow-up with dentistry as earliest ability for definitive management. At this time will discharge with return precautions and follow-up recommendations. Verbal discharge instructions given a the bedside and opportunity for questions given. Medication warnings reviewed. Patient is in agreement with this plan and has verbalized understanding of return precautions and the need for primary care follow-up in the next 24-72 hours. - Vital Signs Vital signs: Temp Pulse Resp BP Pulse Ox 99.1 F 77 22 H 188/97 H 96 09/20/19 18:44 09/20/19 18:44 09/20/19 18:44 09/20/19 18:44 09/20/19 18:44 Discharge - Discharge Clinical Impression: Otalgia of right ear, Pain due to dental caries Condition: Stable Disposition: HOME, SELF-CARE Additional Instructions: TOOTHACHE: Your pain is due to dental decay. The tooth must be repaired in order for you to feel better. You will, therefore, be referred to a dentist. We do not have dentists on the staff at [facility]. Severe swelling or drainage around a tooth usually means a dental abscess. This also requires evaluation and treatment by the dentist, but antibiotics may be prescribed while awaiting dental treatment. You should be rechecked immediately if you develop major swelling of the face, increasing pain, a lump in the jaw or gums, headache, difficulty swallowing, or fever. PENICILLIN V K: You have been given a prescription for Penicillin VK. Your physician has determined that this is the best antibiotic for your condition. Pen VK can be taken with meals, however more of the antibiotic gets into the bloodstream if it's taken on an empty stomach. Penicillin usually has no side effects. However, allergy to penicillins is common. If you have had an allergic reaction to any drug of the penicillin family, you should never take any other penicillin. Notify your doctor at once if you develop hives, itching, swelling, faintness, or shortness of breath. Salt and soda solution gargle 1 quart of water 1 tablespoon of salt 1 teaspoon of baking soda Mixed 3 ingredients together and boil for 1 minute Placed in a covered quart jar Use 1/2 ounce of cold solution to gargle 3 times a day You have been given a syringe of viscous lidocaine. Please put a small amount of this on your finger and apply it to the gums and tooth that is painful. You can do this every 4 hour for dental pain. Please do not do it any more often than every 4 hours or it will erode the skin on your gums and cause you more pain. Please keep your appointment to the dentist tomorrow. FOLLOW-UP CARE: You have been referred for follow-up care to the dentists listed below. Call the dentists office for an appointment as you were instructed or within the next two days. If you experience worsening or a significant change in your symptoms, notify the physician immediately or return to the Emergency Department at any time for re-evaluation. [facility] [address] [place] [address] [facility] [place] [address] [facility] [address] [facility] [address] [email or web address] [address] [place] [address] Thursday- 8:00am to 5:00 pm Will see patients from other [facility]. Charges based on income and family size and accepts Medicare, Medicaid, and Insurances Will pull molars [facility] [id number] Hours of Operation 8:00 am - 4:30 pm weekdays The following dental offices accept Medicaid: [facility] Dr. Geiger Dr. Bland Dr. Ferreira Dr. Villalobos Pablito [place], [place], and [place] oral surgery Dr. Wang ([place]) Dr. Herrera ([place]) [facility] Drs. Kirkland ([place]) Dr. Rowell ([place]) [facility] Dr. Becerra ([place]) Drs. Manzano and ([place]) Medicaid Care Line Prescriptions: Penicillin V Potassium [Penicillin Vk 500 mg Tablet] 500 mg PO BID #20 tablet Forms: Elevated Blood Pressure Referrals: ANTONIA DENNEY MD [Primary Care Provider] - Follow up as needed
== END 2019-09-20 19:18 | disposition home or self-care (01) ==
LOC: ER 18:40
DX: H92.01 Otalgia, right ear (principal); K08.89 Other specified disorders of teeth and supporting structures; K02.9 Dental caries, unspecified; K04.7 Periapical abscess without sinus; Z88.8 Allergy status to other drugs, medicaments and biological substances; Z88.1 Allergy status to other antibiotic agents; I48.91 Unspecified atrial fibrillation; I10 Essential (primary) hypertension; E11.9 Type 2 diabetes mellitus without complications
CPT/HCPCS: 99282; J3490 ×2